=== PATIENT | female | born 1990 | race Caucasian/White ===

== ENCOUNTER 2022-01-17 18:03 | Emergency (ER) | payer SELFPAY ==
[2022-01-17 18:41] VITALS: BP 143/89; PULSE 75; RESP 16; TEMP 36.3; O2SAT 97
--- NOTE | 2022-01-17 18:48 | ED_ITS ---
HPI - Dental/Oral General: Chief complaint: Dental/Oral Stated complaint: ToothAche Time Seen by Provider: 01/17/22 18:48 History of Present Illness: 31-year-old female comes in today with complaints of right lower jaw pain. Patient was started on amoxicillin 875 mg 2 days ago. Patient was also given some ibuprofen with minimal relief of pain. Patient reports worsening pain and discomfort. Patient has minimal swelling to the right lower jaw. Review of Systems General: Reports: 10 or more systems reviewed and unremarkable except in HPI and below ENMT: Reports: dental pain PFS ED PFSH: Medical History (Updated 01/17/22 @ 18:53 by GRACIELA Brush) Dental caries associated with enamel hypomineralization Social History Smoking and tobacco status: never smoked Female Reproductive History: Date of last menstrual period: 12/24/21 Physical Exam Const: COMMON NORMALS: alert HENMT: COMMON NORMALS: normocephalic HEAD & SCALP: normocephalic TEETH & GINGIVA: Yes gingiva abnormal (Redness and swelling to the first premolar, right side, decay) and Yes poor dentition Neck/C-Spine: COMMON NORMALS: full ROM Resp: COMMON NORMALS: normal respiratory effort Cardio: COMMON NORMALS: regular rate RATE: regular rate Extremity: COMMON NORMALS: normal to inspection Neuro: SENSORIUM/ORIENTATION: Yes alert Skin: COMMON NORMALS: no rashes or lesions noted GENERAL SKIN EXAM: no rashes or lesions noted Course Vital Signs: Vital signs: Vital Signs Temperature 97.4 F L 01/17/22 18:41 Pulse Rate 75 01/17/22 18:41 Respiratory Rate 16 01/17/22 18:41 Blood Pressure 143/89 01/17/22 18:41 Pulse Oximetry 97 01/17/22 18:41 MDM - Dental/Oral Medical Decision Making 31-year-old female comes in today with complaints of right lower jaw pain and discomfort. On exam patient has erythema and swelling to the right lower premolar. There is significant decay to this tooth. There is minimal swelling to the face. Posterior pharynx is open without any signs of symmetry or significant swelling. Patient manages secretions well. Differential diagnosis includes but not limited to dental pain, dental abscess, dental caries. Believe patient probably has a dental abscess antibiotics are not treating it effectively. We will place patient on clindamycin 300 mg 4 times a day for the next 7 days. Patient was given some hydrocodone to assist with her pain control. Patient was recommended to continue using Tylenol and ibuprofen for pain control. Patient was strongly recommended to follow-up with dentist for definitive care. Patient reported understanding. Discharge Plan Discharge Patient Disposition: Home Clinical Impression: Dental abscess Condition: Stable Prescriptions: New clindamycin HCl 300 mg capsule 300 mg PO QID 7 Days Qty: 28 0RF hydrocodone-acetaminophen 5-325 mg tablet 1 tab PO Q6H PRN (Reason: pain (scale score 7-10)) Qty: 7 0RF No Action amoxicillin 875 mg tablet 875 mg PO BID Qty: 30 0RF ibuprofen 800 mg tablet 800 mg PO Q6H Qty: 60 0RF Discharge Orders: Discharge ED (Routine); Ordered 01/17/22 Ordered By: Stanley Kirby Discharge Diet: Usual diet Discharge Activity: Increase activity as tolerated Patient Instructions: Dental Abscess (ED) Activity Restrictions/Additional Instructions: Take clindamycin antibiotic 300 mg 4 times a day while awake. Use hydrocodone for severe pain. Use acetaminophen and ibuprofen to control pain. Drink plenty of water. Use ice or heat to the area for further comfort. Follow-up with dentist for definitive care. Coding Level of Care Code ED Platform Attendant for John Graves
[2022-01-17] MEDS: HYDROcodone-acetaminophen 5-325 mg Tablet 1 TAB PO (18:59)
[2022-01-17] MEDS: clindamycin 150 mg Capsule 300 MG PO (19:08)
== END 2022-01-17 19:09 | disposition home or self-care (01) ==
PROVIDERS: Emergency Provider Nurse Practitioner Family
DX: K04.7 Periapical abscess without sinus (principal)
CPT/HCPCS: 99283

== ENCOUNTER 2022-10-21 16:35 | Inpatient (IN) | payer MEDICAID, SELFPAY ==
[2022-10-21 17:03] VITALS: BP 125/76; PULSE 148; RESP 19; TEMP 37.7; O2SAT 100; BMI 40.0
[2022-10-21 18:37] VITALS: BP 126/72; PULSE 126; O2SAT 100
--- NOTE | 2022-10-21 18:38 | ED_ITS ---
HPI - Female Genitourinary General: Chief complaint: Urogenital-Female Stated complaint: SOB, Abd pains, N/V Time Seen by Provider: 10/21/22 18:38 History of Present Illness: Ms. Gerard is a 32-year-old lady presenting to the emergency department for generalized illness. She notes onset of symptoms with cough and congestion approximately 2 weeks ago. She has had persistent shortness of breath though the cough is improved since that time. She has noted elevated heart rate. She is also subsequently developed hematuria and dysuria. Denies flank pain. She notes generalized malaise. Overall course of symptoms has worsened. Intensity is moderate to severe. No other specific changes in health, exacerbating, or alleviating factors identified. Onset (ago): week(s) Severity: moderate Quality of pain: aching Vaginal discharge: none Vaginal bleeding: none Urinary symptoms: Dysuria and Hematuria Exacerbating factors: none Relieving factors: none Associated symptoms: Reports short of breath, nausea and other Review of Systems General: Reports: 10 or more systems reviewed and unremarkable except in HPI and below GI: Reports: nausea PFSH ED PFSH: Medical History Dental caries associated with enamel hypomineralization Social History Smoking and tobacco status: never smoked Physical Exam Const: COMMON NORMALS: alert GENERAL APPEARANCE: cooperative and well developed HENMT: COMMON NORMALS: normocephalic and atraumatic HEAD & SCALP: normocephalic and atraumatic Eye: COMMON NORMALS: conjunctivae normal CONJUNCTIVA: Yes conjunctivae normal SCLERA: sclerae normal Neck/C-Spine: COMMON NORMALS: supple GENERAL: Yes trachea midline Resp: COMMON NORMALS: clear to auscultation bilaterally EFFORT & INSPECTION: Yes able to speak in complete sentences AUSCULTATION: clear to auscultation bilaterally Cardio: COMMON NORMALS: regular rhythm RATE: tachycardic RHYTHM: regular rhythm GI: COMMON NORMALS: Soft to palpation PALPATION: Yes Soft to palpation and No Tenderness to palpation present (GI) : COMMON NORMALS: Yes no CVA tenderness BLADDER/KIDNEY EXAM: Yes no CVA tenderness Back/Pelvis: COMMON NORMALS: no CVA tenderness Extremity: GENERAL: Yes normal exam except as noted and No edema Neuro: COMMON NORMALS: moves all extremities SENSORIUM/ORIENTATION: Yes alert and No Orientation impaired Psych: COMMON NORMALS: mental status grossly normal and Normal thought process present THOUGHT PROCESS: Normal thought process present Course Vital Signs: Vital signs: Vital Signs Temperature 98.1 F 10/27/22 17:45 Pulse Rate 98 10/27/22 17:45 Respiratory Rate 18 10/27/22 17:45 Blood Pressure 132/85 10/27/22 17:45 Pulse Oximetry 100 10/27/22 17:45 Oxygen Delivery Me thod Room Air 10/27/22 16:00 MDM - Female Medical Decision Making 32-year-old lady presenting with shortness of breath and abdominal symptoms. She is tachycardic on exam. EKG demonstrate sinus tachycardia with nonspecific ST segment abnormalities, normal axis and intervals, no STEMI. Labs with leukocytosis, microcytic anemia, thrombocytosis which is likely reactive. Metabolic panel with dehydration and mild hypokalemia. Lactic acid is elevated with improvement after fluid resuscitation. Urinalysis with possible UTI. Chest x-ray with no lobar consolidation or pneumothorax. Given severity of symptoms and overall clinical history/evaluation CT imaging is appropriate. CT demonstrates likely pyelonephritis. Incidental findings discussed. Patient treated with IV fluids needing 30 cc/kg ideal body weight and broad- spectrum antibiotics. She was also given analgesia. Mostly etiology of symptoms is pyelonephritis with sepsis. The results of ED evaluation were discussed with the patient including plan for admission due to requirement for level of care not available if discharged to prevent significant worsening/deterioration. Patient agreeable with plan. Discussed with hospitalist service who was agreeable to admit patient. Medical Records I reviewed the patient's medical records. Lab Data I reviewed the patient's lab results. 10/26/22 04:17 10/26/22 04:17 Radiology Impressions Chest X-Ray 10/21/22 18:44 IMPRESSION: No acute findings. Chest/Abdomen/Pelvis CT 10/21/22 20:28 IMPRESSION: No acute findings. IMPRESSION: 1. Cystic collection of material posterior to the uterus measuring 3.9 cm may reflect a collection of ovarian cysts, consider further characterization with pelvic ultrasound. 2. Mild left kidney perinephric edema with some possible left kidney upper pole heterogeneity, please correlate for possible pyelonephritis. 3. Probable dependent subcutaneous edema in the posterior lumbar region. 4. Fluid in the uterine cavity likely related menstrual status. 5. Hepatic steatosis. Pelvis Ultrasound 10/22/22 03:06 IMPRESSION: 1. Normal uterus and endometrium. 2. Both ovaries are very slightly enlarged with small cysts. No mass or torsion. 3. Small amount of complex fluid in the pelvis is probably blood from a hemorrhagic cyst. Abdomen/Pelvis CT 10/23/22 02:32 IMPRESSION: No acute intra-abdominal or intrapelvic pathology. Chest CTA 10/24/22 18:52 IMPRESSION: 1. Scattered ground-glass opacities in the left lower lobe most prominent at the posteromedial aspect. Nonspecific and can be seen with pneumonia, pneumonitis, and/or pulmonary edema. 2. Fatty infiltration of the liver. Laboratory Results WBC 26.6 10^3/uL (4.0-10.0) H 10/21/22 19:30 RBC 3.74 10^6/uL (4.1-5.3) L 10/21/22 19:30 Hgb 7.6 g/dL (11.5-15.3) L 10/21/22 19:30 Hct 27.3 % (37.0-47.0) L 10/21/22 19:30 MCV 73.0 fl (81-99) L 10/21/22 19:30 MCH 20.3 pg (28.0-34.0) L 10/21/22 19:30 MCHC 27.8 g/dL (30.0-36.0) L 10/21/22 19:30 RDW 17.3 % (12.1-15.1) H 10/21/22 19:30 Plt Count 574 10^3/cmm (130-400) H 10/21/22 19:30 MPV 9.2 fL (7.4-10.4) 10/21/22 19:30 Neut % (Auto) 80.1 % 10/21/22 19:30 Lymph % (Auto) 10.2 % 10/21/22 19:30 [place] % (Auto) 7.4 % 10/21/22 19:30 Eos % (Auto) 0.1 % 10/21/22 19:30 Baso % (Auto) 0.3 % 10/21/22 19:30 Neut # (Auto) 21.24 10^3/uL (1.8-7.7) H 10/21/22 19: Lymph # (Auto) 2.7 10^3/uL (0.8-4.8) 10/21/22 19: [place] # (Auto) 2.0 10^3/uL (0.2-0.9) H 10/21/22: Eos # (Auto) 0.0 10^3/uL (0.0-0.8) 10/21/22 19: Baso # (Auto) 0.1 10^3/uL (0.0-0.1) 10/21/22: Nucleated RBC % (auto) 0.6 % 10/21/22: Nucleated RBCs # 0.2 /100WBC 10/21/22: D-Dimer 0.64 ug/mIFEU (0-0.59) H 10/21/22 19:30 Sodium 136 mmol/L (136-145) 10/21/22 19: Potassium 3.2 mmol/L (3.5-5.1) L 10/21/22 19: Chloride 100 mmol/L (98-107) 10/21/22 19: Carbon Dioxide 21 mmol/L (22-29) L 10/21/22: Anion Gap 18.2 (5-19) 10/21/22: BUN 11 mg/dL (6-20) 10/21/22: Creatinine 0.7 mg/dL (0.5-0.9) 10/21/22: GFR Calculation 98.3 mL/min (90-130) 10/21/22 19: Glucose 97 mg/dL (65-115) 10/21/22: Calculated Osmolality 281 mOsm/kg (285-295) L 10/21/22 19:30 Lactic Acid 3.6 mmol/L (0.5-2.2) H 10/21/22 19: Lactic Acid (Sepsis) 2.1 mmol/L (0.5-2.2) 10/21/22 21:54 Calcium 8.9 mg/dL (8.5-10.5) 10/21/22: Iron 12 ug/dL (37-145) L 10/21/22 19: TIBC 363 mcg/dl 10/21/22 19: % Saturation 3.3 % (20-50) L 10/21/22 19: Unsat Iron Binding 351 ug/dL (112-347) H 10/21/22 19:30 Ferritin 35 ng/mL (15-150) 10/21/22 19: Total Bilirubin 0.7 mg/dL (0.15-1.2) 10/21/22 19: AST 20 U/L (0-32) 10/21/22 19: ALT 22 U/L (0-33) 10/21/22: Alkaline Phosphatase 83 U/L (35-105) 10/21/22: C-Reactive Protein 104.0 mg/L (0.0-4.9) H 10/21/22 19: Total Protein 7.9 g/dL (6.6-8.7) 10/21/22: Albumin 4.4 g/dL (3.5-5.2) 10/21/22 19: Globulin 3.5 g/dL (1.3-4.6) 10/21/22 19: Lipase 27 U/L (13-60) 10/21/22 19: Procalcitonin 0.12 ng/mL (0-0.5) 10/21/22 19: TSH 2.99 uIU/mL (0.27-4.20) 10/21/22 19: HCG, Qual Negative (Negative) 10/21/22 19: Urine Color Yellow (Yellow) 10/21/22 19:55 Urine Appearance Clear (CLEAR) 10/21/22 19:55 Urine pH 6 (5-7) 10/21/22 19: Ur Specific [place] 1.020 (1.005-1.030) 10/21/22 19: Urine Protein Neg (Negative) 10/21/22 19:55 Urine Glucose (UA) Norm (Normal) 10/21/22 19:55 Urine Ketones Negative (Negative) 10/21/22 19:55 Urine Blood 3+ (Negative) H 10/21/22 19:55 Urine Nitrate Negative (Negative) 10/21/22 19:55 Urine Bilirubin Neg (Negative) 10/21/22 19:55 Urine Urobilinogen Norm mg/dL (Negative) 10/21/22 19:55 Ur Leukocyte Esterase Negative (Negative) 10/21/22 19:55 Urine RBC 5-10 /hpf (0-2) H 10/21/22 19:55 Urine WBC 5-10 /hpf (0-5) H 10/21/22 19:55 Ur Squamous Epith Cells 0-4 /hpf (0-5) H 10/21/22 19:55 Amorphous Sediment Not Reportable 10/21/22 19:55 Urine Bacteria 2+ /hpf (NONE) H 10/21/22 19:55 Critical Care Time Critical Care Time: Critical Care Time: Yes Total Critical Care Time: 35 Attestation: Due to a high probability of clinically significant, possibly life threatening deterioration, the patient required my highest level of attention and preparedness to intervene emergently and I personally spent this critical care time directly and personally managing the patient. This critical care time included obtaining a history; examining the patient; pulse oximetry; ordering and review of laboratory and imaging studies; arranging urgent treatment with development of a management plan; evaluation of patient's response to treatment; frequent reassessment; and, discussions with other providers as applicable. It was exclusive of separately billable procedures. Primary system involved is infectious disease Discharge Plan Discharge Patient Disposition: Admitted As Inpatient Admit Provider: Julia Jordan Clinical Impression: Pyelonephritis, Sepsis Condition: Stable Discharge Diet: Cardiac Discharge Activity: Increase activity as tolerated Coding Level of Care Code ED C 13 Catapult Operator for John Graves
--- NOTE | 2022-10-21 18:44 | XRR_ITS ---
PROCEDURE INFORMATION: Exam: XR Chest Exam date and time: 10/21/2022 6:56 PM Age: 32 years old Clinical indication: Cough TECHNIQUE: Imaging protocol: Radiologic exam of the chest. Views: 1 view. COMPARISON: CR XR chest 1V [id number] 11/11/2018 6:47 AM FINDINGS: Lungs: Unremarkable. No consolidation. Pleural spaces: Unremarkable. No pleural effusion. No pneumothorax. Heart/Mediastinum: Unremarkable. No cardiomegaly. Bones/joints: Unremarkable. XR/XR chest 1V portable [id number] IMPRESSION: No acute findings.
--- NOTE | 2022-10-21 19:40 | ECG_ITS ---
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 Measurements Intervals [place] Rate: 134 P: 33 NH: 136 QRS: 15 QRSD: 77 T: -4 QT: 331 QTc: 495 Interpretive Statements SINUS TACHYCARDIA MINIMAL VOLTAGE CRITERIA FOR LVH, CONSIDER NORMAL VARIANT [MEETS CRITERIA IN ONE OF: R(aVL), S(V1), R(V5), R(V5/V6)+S(V1)] POSSIBLE ANTERIOR MYOCARDIAL INFARCTION , PROBABLY OLD [30 ms Q WAVE IN V3/V4, OR R < 0.2 mV IN V4] ABNORMAL RHYTHM ECG Compared to ECG 11/12/2018 11:01:11 Myocardial infarct finding now present Electronically Signed On 10-21-2022 21:07:28 CDT by Lamont Garcia M.D. [id number]
[2022-10-21 19:55] LABS: Basophils # 0.1 10^3/uL (0.0-0.1); Basophils % 0.3 %; Eosinophils % 0.1 %; Hematocrit 27.3 % (37.0-47.0); Hemoglobin 7.6 g/dL (11.5-15.3); Lymphocytes # 2.7 10^3/uL (0.8-4.8); Lymphocytes % 10.2 %; Mean Corpuscular HGB Conc 27.8 g/dL (30.0-36.0); Mean Corpuscular Hemoglobin 20.3 pg (28.0-34.0); Mean Platelet Volume 9.2 fL (7.4-10.4); Monocytes % 7.4 %; Neutrophils # 21.24 10^3/uL (1.8-7.7); Neutrophils % 80.1 %; Nucleated Red Blood Cells # 0.2 /100WBC; Nucleated Red Blood Cells % 0.6 %; Platelet Count 574 10^3/cmm (130-400); Red Blood Count 3.74 10^6/uL (4.1-5.3); Red Cell Distribution Width 17.3 % (12.1-15.1); White Blood Count 26.6 10^3/uL (4.0-10.0)
[2022-10-21 20:27] LABS: D Dimer 0.64 ug/mIFEU (0-0.59)
[2022-10-21] MEDS: cefepime 2,000 MG in sodium chloride 0.9% (plus) 50 ML 100 MG IV (20:28)
--- NOTE | 2022-10-21 20:28 | CTR_ITS ---
PROCEDURE INFORMATION: Exam: CT Chest With Contrast; Diagnostic Exam date and time: 10/21/2022 11:31 PM Age: 32 years old Clinical indication: Pain and abnormal findings; Abnormal lab test; Elevated wbc; Other: N/a; Abdominal pain; Shortness of breath; Patient HX: C/O SOB with diffuse abd pain. Persistent tachycardia. Wbc of 26k. Hematuria. ; Additional info: SOB, tachycardia, abd pain, sirs TECHNIQUE: Imaging protocol: Diagnostic computed tomography of the chest with contrast. Radiation optimization: All CT scans at this facility use at least one of these dose optimization techniques: automated exposure control; mA and/or kV adjustment per patient size (includes targeted exams where dose is matched to clinical indication); or iterative reconstruction. Contrast material: OMNI 350; Contrast volume: 100 ml; Contrast route: INTRAVENOUS (IV); REPORTING DATA: Count of CT and Cardiac NM exams in prior 12 months: This patient has received 0 known CTs and 0 known cardiac nuclear medicine studies in the 12 months prior to the current study. COMPARISON: CR (CHEST, ) 10/21/2022 6:56 PM RADIATION DOSE METRICS: Total DLP (mGy-cm): 1296.23 FINDINGS: Lungs: Unremarkable. No consolidation. No masses. Pleural spaces: Unremarkable. No pneumothorax. No pleural effusion. Heart: Unremarkable. No cardiomegaly. No pericardial effusion. Lymph nodes: Unremarkable. No enlarged lymph nodes. Vasculature: Unremarkable. No aortic aneurysm. Bones/joints: Unremarkable. No acute fracture. Soft tissues: Unremarkable. PROCEDURE INFORMATION: Exam: CT Abdomen And Pelvis With Contrast Exam date and time: 10/21/2022 11:31 PM Age: 32 years old Clinical indication: Pain and abnormal findings; Abnormal lab test; Elevated wbc; Other: N/a; Abdominal pain; Shortness of breath; Patient HX: C/O SOB with diffuse abd pain. Persistent tachycardia. Wbc of 26k. Hematuria. ; Additional info: SOB, tachycardia, abd pain, sirs TECHNIQUE: Imaging protocol: Computed tomography of the abdomen and pelvis with contrast. Radiation optimization: All CT scans at this facility use at least one of these dose optimization techniques: automated exposure control; mA and/or kV adjustment per patient size (includes targeted exams where dose is matched to clinical indication); or iterative reconstruction. Contrast material: OMNI 350; Contrast volume: 100 ml; Contrast route: INTRAVENOUS (IV); REPORTING DATA: Count of CT and Cardiac NM exams in prior 12 months: This patient has received 0 known CTs and 0 known cardiac nuclear medicine studies in the 12 months prior to the current study. COMPARISON: CT angio chest w abd pel w con 11/11/2018 8:54 AM RADIATION DOSE METRICS: Total DLP (mGy-cm): 1296.23 FINDINGS: Liver: Hepatic steatosis. Gallbladder and bile ducts: Normal. No calcified stones. No ductal dilation. Pancreas: Normal. No ductal dilation. Spleen: Normal. No splenomegaly. Adrenal glands: Normal. No mass. Kidneys and ureters: Mild left kidney perinephric edema with some possible left kidney upper pole heterogeneity, please correlate for possible pyelonephritis. Stomach and bowel: Unremarkable. No obstruction. No mucosal thickening. Appendix: No evidence of appendicitis. Intraperitoneal space: Unremarkable. No free air. No significant fluid collection. Vasculature: Unremarkable. No abdominal aortic aneurysm. Lymph nodes: Unremarkable. No enlarged lymph nodes. Urinary bladder: Unremarkable as visualized. Reproductive: Cystic collection of material posterior to the uterus measuring 3.9 cm may reflect a collection of ovarian cysts, consider further characterization with pelvic ultrasound. Fluid in the uterine cavity likely related menstrual status. Bones/joints: Unremarkable. No acute fracture. Soft tissues: Probable dependent subcutaneous edema in the posterior lumbar region. CT/CT chest abdpel w/*[id number] IMPRESSION: No acute findings. IMPRESSION: 1. Cystic collection of material posterior to the uterus measuring 3.9 cm may reflect a collection of ovarian cysts, consider further characterization with pelvic ultrasound. 2. Mild left kidney perinephric edema with some possible left kidney upper pole heterogeneity, please correlate for possible pyelonephritis. 3. Probable dependent subcutaneous edema in the posterior lumbar region. 4. Fluid in the uterine cavity likely related menstrual status. 5. Hepatic steatosis.
[2022-10-21] MEDS: lactated ringers 1,000 ML 999 ML IV ×2 (20:29→23:14)
[2022-10-21 20:33] LABS: Lactic Sepsis W/Reflex 3.6 mmol/L (0.5-2.2)
[2022-10-21 20:34] LABS: Alanine Aminotransferase 22 U/L (0-33); Albumin Level 4.4 g/dL (3.5-5.2); Alkaline Phosphatase 83 U/L (35-105); Anion Gap 18.2 (5-19); Aspartate Amino Transferase 20 U/L (0-32); Blood Urea Nitrogen 11 mg/dL (6-20); Calcium 8.9 mg/dL (8.5-10.5); Carbon Dioxide 21 mmol/L (22-29); Chloride 100 mmol/L (98-107); Globulin 3.5 g/dL (1.3-4.6); Glomerular Filtration Rate 98.3 mL/min (90-130); Glucose 97 mg/dL (65-115); Lipase 27 U/L (13-60); Osmolality Calculated 281 mOsm/kg (285-295); Potassium 3.2 mmol/L (3.5-5.1); Sodium 136 mmol/L (136-145); Total Bilirubin 0.7 mg/dL (0.15-1.2); Total Protein 7.9 g/dL (6.6-8.7)
[2022-10-21 20:35] LABS: Add Urine Culture? Yes; Add Urine Microscopic? YES; Bacteria Urine 2+ /hpf; Bilirubin Urine Neg (Negative); Blood Urine 3+ (Negative); Glucose Urine UA Norm (Normal); Ketones Urine Negative (Negative); Leukocyte Esterase Urine Negative (Negative); Nitrate Urine Negative (Negative); Protein Urine Neg (Negative); Squamous Epithelial Cell Urine 0-4 /hpf (0-5); Urine Appearance Clear (CLEAR); Urine Color Yellow (Yellow); Urobilinogen Urine Norm (Negative); pH Urine 6 (5-7)
[2022-10-21 20:39] LABS: Procalcitonin 0.12 ng/mL (0-0.5)
[2022-10-21 20:40] LABS: HCG Qualitative Urine. Negative (Negative)
[2022-10-21 20:44] VITALS: RESP 16; O2SAT 100
[2022-10-21] MEDS: morphine 4 mg/mL SDV 1 mL IVP (20:44)
[2022-10-21 20:59] VITALS: BP 103/54; PULSE 126; RESP 16; O2SAT 100
[2022-10-21 21:28] LABS: Reflex Lactate Order REFLEX LACTIC ORDERD
[2022-10-21 21:46] VITALS: BP 126/58; PULSE 139; RESP 16; O2SAT 100
[2022-10-21 22:22] LABS: Lactic Acid level (Lactate) 2.1 mmol/L (0.5-2.2)
[2022-10-21] MEDS: iohexol 350 mg/mL 500 mL Btl (per mL) IV (23:39)
[2022-10-22] VITALS (16 sets, daily range): BP systolic 80–132; BP diastolic 44–66; PULSE 85–145; RESP 16–19; TEMP 36.8–38.6; O2SAT 95–100; BMI 48.0
[2022-10-22] MEDS: lactated ringers 1,000 ML 75 ML (02:07)
--- NOTE | 2022-10-22 02:31 | PC.NURSE ---
Pt arrived to room 269 w/mother and father at bedside. Explained hospitalist will be in and put in orders, NPO at this time. Pt denies pain currently.
--- NOTE | 2022-10-22 02:50 | ECG_ITS ---
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 Measurements Intervals [place] Rate: 120 P: 47 NE: 155 QRS: 40 QRSD: 81 T: 13 QT: 417 QTc: 589 Interpretive Statements SINUS TACHYCARDIA LOW QRS VOLTAGE IN PRECORDIAL LEADS [QRS DEFLECTION < 1.0 mV IN CHEST LEADS] NONSPECIFIC T-WAVE ABNORMALITY Compared to ECG 10/22/2022 02:57:01 No significant changes Electronically Signed On 10-22-2022 7:37:22 CDT by Lamont Garcia M.D. [id number]
--- NOTE | 2022-10-22 03:01 | P.HP_ITS ---
Providers/Chief Complaint Admitting Physician: Julia Jordan MD Chief Complaint: SOB, Abd pains, N/V History of Present Illness Araceli Gerard is a 32 year old female with nonsignificant past medical history presented to the ER with generalized weakness along with symptoms of cough and congestion that started 2 weeks ago. She is also been having shortness of breath along with it. She states that the cough might be a little bit better however the shortness of breath has not improved. Eventually subsequently she developed some burning upon urination and also noticed blood in her urine. She says she generally feels weak. She has been feeling worse day by day ever since this whole thing started. Denies any chest pain, abdominal pain, nausea, vomiting, diarrhea at this time. Has never smoked, denies alcohol use. Says she has had a UTI before and a kidney infection but that was years ago. She is not on any home medications and otherwise healthy. Arrival to ER blood pressure 126/72, respirate 19, tachycardic at 126, tempe rature 99.8, saturating 100% on room air. Chest x-ray did not show any acute findings. WBC 26.6, hemoglobin 7.6, RDW 17.3, platelet 574, D-dimer 0.64, potassium 3.2, bicarb 21, creatinine 0.7, lipase negative, CRP 104, lactic acid 3.6, UA positive for 3+ blood, 5-10 RBC, 5-10 WBC, 2+ bacteria. test negative, procalcitonin 0.12. EKG did show sinus tachycardia. Medications/Allergies Home Medications Medication Instructions Recorded Confirmed Last Taken Type No Known Home Medications 10/21/22 10/21/22 Unknown History Allergies Allergy/AdvReac Type Severity Reaction Status Date / Time No Known Allergies Allergy Verified 01/17/22 18:44 PFSH Acute PFSH: Medical History Dental caries associated with enamel hypomineralization Social History Smoking and tobacco status: never smoked Vitals/I&O/Wt Last Vital Signs Temp 99.9 F H 10/22/22 02:07 Pulse 132 H 10/22/22 02:07 Resp 18 10/22/22 02:07 BP 114/58 10/22/22 02:07 Pulse Ox 100 10/22/22 02:07 O2 Del Method Room Air 10/22/22 02:08 10/21/22 10/21/22 10/22/22 14:59 22:59 06:59 Intake Total 2049 Balance 2049 Weight last 48 hrs Weight 100.783 kg Weight 83.915 kg Physical Exam Narrative: General: Alert oriented x3, patient seen laying in bed, tachycardic no acute respiratory distress. Appears dehydrated HEENT: Normocephalic, atraumatic, EOMI, breathing room air Cardio: Tachycardic, normal S1-S2, Respiratory: Mainly clear to auscultation bilaterally no wheezes or rhonchi at this time. GI: Abdomen soft, nontender,bowel sounds + Behavior: Appropriate and cooperative Extremities: No edema bilateral lower extremity Sepsis: Is patient septic: Yes Focused sepsis exam performed: Yes Focused sepsis exam: Tachycardic, elevated lactic acid, elevated temperature, wbc [id number] Date exam was performed: 10/22/22 Data 10/21/22 19:30 10/21/22 19:30 Micro: Microbiology 10/21/22 19:30 Blood Culture - Preliminary Blood SPECIMEN COLLECTED 10/21/22 19:30 Blood Culture - Preliminary Blood SPECIMEN COLLECTED A&P Assessment and plan (1) Pyelonephritis: (2) Sepsis: (3) Thrombocytosis: (4) Cough: (5) Leukocytosis: (6) Anemia: (7) Hypokalemia: Plan #Sepsis secondary to acute pyelonephritis #Low-grade temperature #Cough most likely 2/2 upper respiratory viral illness #Hematuria, dysuria #Thrombocytosis #Leukocytosis #Anemia #Hypokalemia ? CT chest abd pelvis showed: 1. Cystic collection of material posterior to the uterus measuring 3.9 cm may reflect a collection of ovarian cysts, consider further characterization with pelvic ultrasound. 2. Mild left kidney perinephric edema with some possible left kidney upper pole heterogeneity, please correlate for possible pyelonephritis. 3. Probable dependent subcutaneous edema in the posterior lumbar region. 4. Fluid in the uterine cavity likely related menstrual status. 5. Hepatic steatosis. ? Check iron, TIBC, ferritin. P.m. labs do indicate possible iron deficiency anemia ? Check FOBT ? Patient may require IV iron ? Thrombocytosis most likely secondary to infection ? Check blood cultures, urine culture ? Respiratory viral panel, COVID PCR ? Vitals every 4 hours ? Trend CBC every 12 hours ? Check CMP, magnesium in a.m. ? Replete potassium and recheck in a.m. - Check pelvic ultrasound - Continue on vanc + cefepime - NS bolus x2, then place on NS 125 cc/hr Full code DVT prophylaxis: SCDs, pharmacological contraindicated at this time Attestations Medical Necessity Statement*: > 2 midnight stay for management of pyelonephritis. Other Coding Information Focused coding review requested Diagnoses Pyelonephritis N12 Sepsis A41.9 Thrombocytosis D75.839 Cough R05.9 Leukocytosis D72.829 Anemia D64.9 Hypokalemia E87.6
--- NOTE | 2022-10-22 03:06 | US_ITS ---
WS: [id number] US pelvic complete* 01430 HISTORY: Cystic collection of material posterior to the uterus COMPARISON: CT 10/21/2022 Uterus: 8.6 cm x 4.4 cm x 4.5 cm. Normal size anteverted uterus. No fibroid or mass. Endometrium: 0.7 cm. Normal by transabdominal imaging. Right ovary: 3.8 cm x 2.9 cm x 3.8 cm. Ovaries top normal size. There are multiple small follicles sc attered throughout the ovary which is close to the uterus and slightly posterior in the cul-de-sac. Left ovary: 3.9 cm x 2.6 cm x 4.6 cm. Slightly enlarged. Small follicles. Normal vascularity. Small amount of complex free fluid in the pelvis. US/US pelvic complete* [id number] IMPRESSION: 1. Normal uterus and endometrium. 2. Both ovaries are very slightly enlarged with small cysts. No mass or torsio n. 3. Small amount of complex fluid in the pelvis is probably blood from a hemorr hagic cyst.
[2022-10-22] MEDS: sodium chloride 0.9% 1,000 ML 999 ML IV ×3 (03:11→23:54)
[2022-10-22] MEDS: acetaminophen 325 mg Tablet 650 MG PO ×2 (03:16→10:06)
[2022-10-22] MEDS: potassium chloride ER 20 mEq Tablet 40 MEQ PO (03:16)
[2022-10-22 04:35] LABS: Ferritin 35 ng/mL (15-150); Iron 12 ug/dL (37-145); Percent Saturation 3.3 % (20-50); Thyroid Stimulating Hormone 2.99 uIU/mL (0.27-4.20); Total Iron Binding Capacity 363 mcg/dl; Unsaturated Iron Binding 351 ug/dL (112-347)
[2022-10-22] MEDS: sodium chloride 0.9% 1,000 ML 125 ML IV ×2 (05:26→17:35)
[2022-10-22] MEDS: iron sucrose 200 MG in sodium chloride 0.9% (100 ml) 100 ML 220 MG IV (05:27)
[2022-10-22 05:43] LABS: Adenovirus Not Detected (NOT DETECT); Chlamydia Pneumoniae Not Detected (NOT DETECT); Coronavirus 229E,HKU1,NL63,OC4 Not Detected (NOT DETECT); Human Metapneumovirus Not Detected (NOT DETECT); Human Rhinovirus/Enterovirus Not Detected (NOT DETECT); Influenza A Not Detected (NOT DETECT); Influenza A H1 Not Detected (NOT DETECT); Influenza A H1-2009 Not Detected (NOT DETECT); Influenza A H3 Not Detected (NOT DETECT); Influenza B Not Detected (NOT DETECT); Mycoplasma Pneumoniae Not Detected (NOT DETECT); Parainfluenza Virus Type 1 Not Detected (NOT DETECT); Parainfluenza Virus Type 2 Not Detected (NOT DETECT); Parainfluenza Virus Type 3 Not Detected (NOT DETECT); Parainfluenza Virus Type 4 Not Detected (NOT DETECT); Respiratory Syncytial Virus A Not Detected (NOT DETECT); Respiratory Syncytial Virus B Not Detected (NOT DETECT); SARS-COV-2 Not Detected (NOT DETECT)
[2022-10-22] MEDS: vancomycin 1,250 MG/250 ML PIGGYBACK 250 MG IV ×2 (06:13→22:58)
[2022-10-22] MEDS: cefepime 1,000 MG in sodium chloride 0.9% (plus) 50 ML 100 MG IV ×2 (08:27→19:58)
--- NOTE | 2022-10-22 13:54 | P.PN_ITS ---
Subjective Subjective: She is having some abdominal and back pain. Vitals/I&O/Wt Last Vital Signs Temp 98.2 F 10/22/22 12:00 Pulse 117 H 10/22/22 12:00 Resp 18 10/22/22 12:00 BP 111/63 10/22/22 12:00 Pulse Ox 96 10/22/22 12:00 O2 Del Method Room Air 10/22/22 12:00 10/21/22 10/22/22 10/22/22 22:59 06:59 14:59 Intake Total 4172.5 / 4172.5 660 / 660 Balance 4172.5 / 4172.5 660 / 660 Weight last 48 hrs Weight 100.783 kg Weight 83.915 kg Physical Exam Narrative: Accompanied by her mother. Const: COMMON NORMALS: patient oriented x3 and alert GENERAL APPEARANCE: cooperative and ill appearing NUTRITIONAL APPEARANCE: obese ORIENTAT ION/CONSCIOUSNESS: Yes awake HENMT: COMMON NORMALS: oropharynx normal Neck/C-Spine: COMMON NORMALS: no JVD Resp: COMMON NORMALS: normal respiratory effort and clear to auscultation bilaterally AUSCULTATION: clear to auscultation bilaterally Cardio: COMMON NORMALS: no JVD, regular rhythm, S1 normal heart sound present, S2 normal heart sound present and No murmurs present (Cardio) RHYTHM: regular rhythm HEART SOUNDS: S1 normal heart sound present and S2 normal heart sound present GI: COMMON NORMALS: Soft to palpation PALPATION: Yes Soft to palpation and Yes Tenderness to palpation present (GI) (Mild to moderate tenderness on palpation) Extremity: COMMON NORMALS: no joint enlargement and no pedal edema Neuro: COMMON NORMALS: patient oriented x3 and moves all extremities SENSORIUM/ORIENTATION: Yes alert Skin: COMMON NORMALS: no rashes or lesions noted GENERAL SKIN EXAM: no rashes or lesions noted Data 10/21/22 19:30 10/21/22 19:30 Micro: Microbiology 10/21/22 19:30 Blood Culture - Preliminary Blood SPECIMEN COLLECTED 10/21/22 19:30 Blood Culture - Preliminary Blood SPECIMEN COLLECTED A&P Assessment and plan (1) Pyelonephritis: Complicated UTI with pyelonephritis. Continue cefepime, vancomycin. Follow-up urine culture. Pain control, nausea control. (2) Pelvic fluid collection: Small amount of complex fluid in the pelvis suspected from ruptured hemorrhagic cyst discussed with her and her mother. Likely contributing to her abdominal pain and other symptoms. Pain and nausea control. Ultrasound results appreciated, normal endometrium and uterus, both ovaries slightly enlarged with small cyst. No mass or torsion. (3) Anemia: TSH are normal. Microcytic. Iron studies appreciated, iron 12, saturation 3.3, iron deficiency anemia. Ferritin 35. As she is still actively in sepsis hold off iron supplementation for now, resume once sepsis under control. (4) Sepsis: Continue to treat online condition as above, noted persistent tachycardia 117. She is afebrile. Leukocytosis 26.6 noted last night, recheck CBC is ordered. Follow-up blood cultures, urine cultures. (5) Thrombocytosis: May be acute phase reactant secondary to sepsis. Follow-up CBC is ordered. (6) Cough: (7) Leukocytosis: (8) Hypokalemia: Received replacement. Recheck chemistry is ordered. Add magnesium. Plan #Sepsis secondary to acute pyelonephritis #Low-grade temperature #Cough most likely 2/2 upper respiratory viral illness #Hematuria, dysuria #Thrombocytosis #Leukocytosis #Anemia #Hypokalemia Hepatic steatosis. Abnormal D-dimer: Mild abnormality D-dimer 0.64 possibly related to sepsis. We will follow-up study. Contrast CT including chest without suggestion of PE. Assess venous duplex ultrasound. Attestations Medical Necessity Statement*: Continue admission for management of complicated UTI, pyelonephritis. Diagnoses Pyelonephritis N12 Pelvic fluid collection R18.8 Anemia D64.9 Sepsis A41.9 Thrombocytosis D75.839 Cough R05.9 Leukocytosis D72.829 Hypokalemia E87.6
--- NOTE | 2022-10-22 14:06 | USCV_ITS ---
Moustapha Araceli Age: 32 Gender: F : 1990 Exam Date: 10/22/2022 14:37 Ordering Phys: Alok Siddiqi MD Technologist: Jalil Agosto [place] [facility] [place] PROCEDURES: The venous duplex Doppler examination of both lower extremities was performed in the standard fashion. The following venous structures were evaluated: common femoral vein, profunda vein, proximal portion of the greater saphenous vein, superficial femoral vein, and the popliteal vein. In addition, the posterior tibial and peroneal trunk were evaluated. FINDINGS: Normal 2-D Doppler and augmentation and compressibility throughout the lower extremity venous structures. Additional imaging through the proximal calf veins also reveals no thrombus. Limited evaluation of the greater saphenous vein is patent with no thrombus. CONCLUSIONS No evidence of right lower extremity DVT. No evidence of left lower extremity DVT. Alber Holliday MD (Electronically Signed) Final Date: 22 October 2022 16:25 S
[2022-10-22] MEDS: ondansetron 2 mg/ML SDV 2 mL 4 MG IVP (14:20)
[2022-10-23] VITALS (22 sets, daily range): BP systolic 94–138; BP diastolic 51–89; PULSE 107–133; RESP 12–24; TEMP 36.7–38.3; O2SAT 94–98
--- NOTE | 2022-10-23 00:57 | ECG_ITS ---
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 Measurements Intervals [place] Rate: 149 P: 52 GA: 142 QRS: 28 QRSD: 76 T: 24 QT: 310 QTc: 489 Interpretive Statements SINUS TACHYCARDIA NONSPECIFIC ST & T-WAVE ABNORMALITY Compared to ECG 10/22/2022 06:43:35 No significant changes Electronically Signed On 10-23-2022 13:51:18 CDT by Lamont Garcia M.D. [id number]
[2022-10-23] MEDS: sodium chloride 0.9% 1,000 ML 999 ML IV (01:13)
--- NOTE | 2022-10-23 01:17 | PC.NURSE ---
Pt and her mother informed on new orders regarding hypotension and tachycardia. Explained iv NS bolus, metoprolol for tachycardia and direction to move to ICU 1 if pt becomes hypotensive again. Mother and daughter stated understanding.
[2022-10-23] MEDS: metoprolol tartrate 25 mg Tablet 12.5 MG PO (01:20)
[2022-10-23 01:35] LABS: Basophils # 0.1 10^3/uL (0.0-0.1); Basophils % 0.3 %; Eosinophils # 0.1 10^3/uL (0.0-0.8); Eosinophils % 0.5 %; Hematocrit 20.9 % (37.0-47.0); Lymphocytes # 2.3 10^3/uL (0.8-4.8); Lymphocytes % 14.4 %; Mean Corpuscular HGB Conc 28.2 g/dL (30.0-36.0); Mean Corpuscular Hemoglobin 20.8 pg (28.0-34.0); Mean Corpuscular Volume 73.9 fl (81-99); Mean Platelet Volume 9.3 fL (7.4-10.4); Monocytes # 1.5 10^3/uL (0.2-0.9); Monocytes % 9.6 %; Neutrophils # 11.58 10^3/uL (1.8-7.7); Neutrophils % 73.5 %; Nucleated Red Blood Cells # 0.1 /100WBC; Nucleated Red Blood Cells % 0.8 %; Platelet Count 403 10^3/cmm (130-400); Red Blood Count 2.83 10^6/uL (4.1-5.3); Red Cell Distribution Width 17.4 % (12.1-15.1); White Blood Count 15.8 10^3/uL (4.0-10.0)
[2022-10-23 01:43] LABS: D Dimer 0.78 ug/mIFEU (0-0.59); Hemoglobin 5.9 g/dL (11.5-15.3)
[2022-10-23 01:45] LABS: Anion Gap 15.3 (5-19); Blood Urea Nitrogen 5 mg/dL (6-20); Calcium 7.5 mg/dL (8.5-10.5); Carbon Dioxide 19 mmol/L (22-29); Chloride 107 mmol/L (98-107); Glomerular Filtration Rate 117.4 mL/min (90-130); Glucose 121 mg/dL (65-115); Osmolality Calculated 285 mOsm/kg (285-295); Potassium 3.3 mmol/L (3.5-5.1); Sodium 138 mmol/L (136-145)
[2022-10-23] MEDS: sodium chloride 0.9% 1,000 ML 125 ML IV ×2 (02:17→11:02)
--- NOTE | 2022-10-23 02:32 | CTR_ITS ---
PROCEDURE INFORMATION: Exam: CT Abdomen And Pelvis Without Contrast Exam date and time: 10/23/2022 5:37 AM Age: 32 years old Clinical indication: Other: Anemia; Abdominal pain; Generalized; Patient HX: C/O persistent abd pain with hemoglobin of 5.9; Additional info: R/O bleed, abd pain, hb 5.9 TECHNIQUE: Imaging protocol: Computed tomography of the abdomen and pelvis without contrast. Radiation optimization: All CT scans at this facility use at least one of these dose optimization techniques: automated exposure control; mA and/or kV adjustment per patient size (includes targeted exams where dose is matched to clinical indication); or iterative reconstruction. REPORTING DATA: Count of CT and Cardiac NM exams in prior 12 months: This patient has received [address] and 0 known cardiac nuclear medicine studies in the 12 months prior to the current study. COMPARISON: CT chest abdpel w/*[id number] 10/21/2022 11:31 PM RADIATION DOSE METRICS: Total DLP (mGy-cm): 998.3 FINDINGS: Liver: The liver is diffusely decreased in density, compatible with hepatic steatosis. No discrete mass lesion identified. Gallbladder and bile ducts: Normal. No calcified stones. No ductal dilation. Pancreas: Normal. No ductal dilation. Spleen: Normal. No splenomegaly. Adrenal glands: Normal. No mass. Kidneys and ureters: Punctate bilateral nonobstructing stones seen. No hydronephrosis. Stomach and bowel: Unremarkable. No obstruction. No mucosal thickening. Appendix: No evidence of appendicitis. Intraperitoneal space: Unremarkable. No free air. No significant fluid collection. Vasculature: Unremarkable. No abdominal aortic aneurysm. Lymph nodes: Unremarkable. No enlarged lymph nodes. Urinary bladder: Unremarkable as visualized. Reproductive: Unremarkable as visualized. Bones/joints: Bilateral hip dysplasia noted. Soft tissues: Unremarkable. CT/CT abdomen pelvis wo con [id number] IMPRESSION: No acute intra-abdominal or intrapelvic pathology.
--- NOTE | 2022-10-23 02:48 | PC.NURSE ---
Per physician Dr. Jordan, pt to transfer to ICU for closer monitor d/t decreased hemoglobin and tachycardia. Informed pt and her mother. Pt's mother ok with the transfer, pt is not ok with the transfer and would like to talk to the physician prior to moving floors. Dr. Jordan notified of pt request to speak w/her prior to transfer to ICU. Physician to talk to patient when done in ICU. Pt remains agitated regarding situation, since it is unclear where her bleed is coming from. One on one care and redirection provided to pt and mother.
[2022-10-23] MEDS: acetaminophen 325 mg Tablet 650 MG PO (05:22)
[2022-10-23 10:51] LABS: LAB Peripheral Smear Sent for Review
[2022-10-23] MEDS: pantoprazole 40 mg SDV IVP ×2 (11:01→21:18)
[2022-10-23] MEDS: cefepime 1,000 MG in sodium chloride 0.9% (plus) 50 ML 100 MG IV ×2 (11:01→19:47)
--- NOTE | 2022-10-23 11:11 | PC.CHAP ---
Pastoral Care Encounter/Spiritual Assessment Type of Contact [] Declined lamp wirer visit [] Patient/Family/Request visit [] Outpatient visit [] Follow-up visit [] Physician referral [] Code/Alert [x] Routine visit [] Staff referral [] Actively dying [] Patient sleeping [] Family support [] [] Out of room [] Palliative care [] [] Receiving care in room [] Pre-surgical visit [] Trauma [] Long length of stay [] ICU visit [] Other: Relational/Emotional Strength [] Patient feels connected with others/family/visitors/staff [] Distress [] Loneliness/isolation [] Abandonment Spirituality of Patient [] Person of Sue [] Attends Temple of their Sue [] Believes in Prayer [] Reads Bible or Congregational materials [x] There are Spiritual issues to be addressed [employer] Interventions [] Prayer [] Active listening [] Non-anxious presence [] Spiritual/emotional support [] Crisis/trauma care [] Spiritual counseling [] Bereavement support [] Provided bereavement packet [] Provided Bible/devotional materials [] Provided toy/stuffed animal, coloring book to patient or family member [] Provided Communion [] Anointing/[place] [] Salvation [x] Completed spiritual assessment [] Other: Impact on Illness or Injury [] Angry [] Fearful [] Anxious [] Often cries [] Exhaustion [] Unable to work [] Unable to attend gnosticism [] Unable to walk/stand [] Unable to read [] Unable to drive [] Unable to eat/drink [] Unable to sleep [] Unable to be with family [] Patient intubated [] Other: Summary patient nrefused prayer Time spent with patient 5 min
[2022-10-23 12:02] LABS: Basophils # 0.1 10^3/uL (0.0-0.1); Basophils % 0.5 %; Eosinophils # 0.1 10^3/uL (0.0-0.8); Eosinophils % 0.3 %; Hematocrit 27.4 % (37.0-47.0); Lymphocytes # 2.4 10^3/uL (0.8-4.8); Lymphocytes % 12.7 %; Mean Corpuscular HGB Conc 29.2 g/dL (30.0-36.0); Mean Corpuscular Hemoglobin 22.7 pg (28.0-34.0); Mean Corpuscular Volume 77.8 fl (81-99); Mean Platelet Volume 9.4 fL (7.4-10.4); Monocytes # 1.8 10^3/uL (0.2-0.9); Monocytes % 9.3 %; Neutrophils # 13.84 10^3/uL (1.8-7.7); Neutrophils % 72.9 %; Nucleated Red Blood Cells # 0.3 /100WBC; Nucleated Red Blood Cells % 1.5 %; Platelet Count 391 10^3/cmm (130-400); Red Blood Count 3.52 10^6/uL (4.1-5.3); Red Cell Distribution Width 18.6 % (12.1-15.1)
[2022-10-23 12:13] LABS: D Dimer 0.86 ug/mIFEU (0-0.59)
[2022-10-23 12:17] LABS: Hematocrit 27.4 % (37.0-47.0)
[2022-10-23 12:18] LABS: Retic Production Index 1.37
[2022-10-23 12:26] LABS: Anion Gap 16.4 (5-19); Blood Urea Nitrogen 5 mg/dL (6-20); Calcium 7.7 mg/dL (8.5-10.5); Carbon Dioxide 18 mmol/L (22-29); Chloride 109 mmol/L (98-107); Glomerular Filtration Rate 144.9 mL/min (90-130); Glucose 98 mg/dL (65-115); Magnesium 1.9 mg/dL (1.7-2.3); Osmolality Calculated 287 mOsm/kg (285-295); Potassium 3.4 mmol/L (3.5-5.1); Sodium 140 mmol/L (136-145)
[2022-10-23 12:27] LABS: Lactate Dehydrogenase 257 U/L (135-214)
[2022-10-23] MEDS: vancomycin 1,500 MG/300 ML PIGGYBACK 200 MG IV (14:30)
--- NOTE | 2022-10-23 17:16 | P.PN_ITS ---
Subjective Subjective: Currently this morning she declined transfer to ICU. Raising her voice with staff, throwing objects. During my visit late morning she is now calm, reports feeling better. Reports abdominal pain has resolved. Her mother is sitting across from her bed and and she is visited by her father and brother as well. We discussed her anemia, discussed findings so far. She denies having any hematochezia or melena. Denies any obvious overt bleeding. Vitals/I&O/Wt Last Vital Signs Temp 98.7 F 10/23/22 16:41 Pulse 114 H 10/23/22 16:41 Resp 12 10/23/22 16:41 BP 121/85 10/23/22 16:41 Pulse Ox 95 10/23/22 16:41 O2 Del Method Room Air 10/23/22 16:41 10/23/22 10/23/22 10/23/22 06:59 14:59 22:59 Intake Total 3570.000 / 6627.500 1057.583 / 1057.583 Balance 3570.000 / 6627.500 1057.583 / 1057.583 Weight last 48 hrs Weight 100.783 kg Physical Exam Narrative: Accompanied by her family. Const: COMMON NORMALS: patient oriented x3 and alert GENERAL APPEARANCE: cooperative and ill appearing NUTRITIONAL APPEARANCE: obese ORIENTATION/CONSCIOUSNESS: Yes awake HENMT: COMMON NORMALS: oropharynx normal Neck/C-Spine: COMMON NORMALS: no JVD Resp: COMMON NORMALS: normal respiratory effort and clear to auscultation bilaterally AUSCULTATION: clear to auscultation bilaterally Cardio: COMMON NORMALS: no JVD, regular rhythm, S1 normal heart sound present, S2 normal heart sound present and No murmurs present (Cardio) RHYTHM: regular rhythm HEART SOUNDS: S1 normal heart sound present and S2 normal heart sound present GI: COMMON NORMALS: Soft to palpation PALPATION: Yes Soft to palpation and Yes Tenderness to palpation present (GI) (Mild to moderate tenderness on palpation) Extremity: COMMON NORMALS: no joint enlargement and no pedal edema Neuro: COMMON NORMALS: patient oriented x3 and moves all extremities SENSORIUM/ORIENTATION: Yes alert Skin: COMMON NORMALS: no rashes or lesions noted GENERAL SKIN EXAM: no rashes or lesions noted OTHER: No petechia or bruising. Data 10/23/22 11:45 10/23/22 11:45 Micro: Microbiology 10/21/22 19:55 Urine Culture - Preliminary Urine,Clean Catch Gram Negative Rods 10/21/22 19:30 Blood Culture - Preliminary Blood NEGATIVE TO DATE 10/21/22 19:30 Blood Culture - Preliminary Blood NEGATIVE TO DATE A&P Assessment and plan (1) Pyelonephritis: Gram-negative rods noted in urine. Symptomatically she feels better. This morning leukocytosis with improvement down to 15.8 but significant decrease in hemoglobin at 5.9. Follow-up urine culture. Blood culture also reviewed, so far negative. Complicated UTI with pyelonephritis. Continue cefepime, vancomycin. Follow-up urine culture. Pain control, nausea control. (2) Anemia: Severe potentially life-threatening anemia, hemoglobin down to 5.9. Discussed with her and her parents severity of anemia and decreased to 9.1 on presentation. Etiology of this is not clear. Discussed work-up so far and additional studies requested. Discussed with her noted to have iron deficiency with iron saturation low at 3.3%. This certainly may suggest chronicity to the anemia with possible chronic loss, possibly GI, in addition to menstrual losses. We discussed with her additionally consideration of loss with bleeding versus hemolysis, versus decreased production. Seems there may be a combination of at least chronic loss, as well as decreased production due to severe iron deficiency. We are checking for hemolysis as discussed with her and her family at bedside, requested LDH, haptoglobin, DIC panel, peripheral smear. Discussed additionally reviewed CT abdomen pelvis study with radiology, small mount of pelvic fluid possibly from ruptured ovarian cyst, but not enough to explain significant drop. Component of dilution considered as well with continued IV hydration and likely chronic anemia now showing more true extent of her blood counts. Additionally she declines hematochezia or melena. Requesting Hemoccult. Discussed with her and family purpose of these tests. She is agreeable. Further assessment pending with other considerations including DIC given some D- dimer abnormality acute infection, Has not received heparin products to suggest HIT. TTP Check INR. No petechia or bruising or overt bleeding noted. Reassess CBC tonight. Follow-up CBC, chemistry with liver parameters tomorrow. 2 units RBC transfused today, monitor closely. Discussed with her to let us know in case of any additional symptoms. Cardiac monitoring. TSH are normal. Microcytic. Iron studies appreciated, iron 12, saturation 3.3, iron deficiency anemia. Ferritin 35. As she is still actively in sepsis hold off iron supplementation for now, resume once sepsis under control. (3) Pelvic fluid collection: Small amount of complex fluid in the pelvis suspected from ruptured hemorrhagic cyst discussed with her and her mother. Likely contributing to her abdominal pain and other symptoms. Pain and nausea control. Ultrasound results appreciated, normal endometrium and uterus, both ovaries slightly enlarged with small cyst. No mass or torsion. (4) Sepsis: Noted gram-negative rods in urine. Continue cefepime. Empirically also vancomycin. Leukocytosis overall has improved. Does have persistent tachycardia. Subjectively today feeling much better. (5) Thrombocytosis: May be acute phase reactant secondary to sepsis. Additional work-up as above under anemia. Follow-up CBC requested. (6) Cough: (7) Leukocytosis: (8) Hypokalemia: Again hypokalemic, potassium 3.4. Mildly low magnesium 1.9. Replace additional potassium, replace magnesium. Recheck chemistry and magnesium in the morning. Plan #Sepsis secondary to acute pyelonephritis #Low-grade temperature #Cough most likely 2/2 upper respiratory viral illness #Hematuria, dysuria #Thrombocytosis #Leukocytosis #Anemia #Hypokalemia Hepatic steatosis. Abnormal D-dimer: Mild abnormality D-dimer 0.64 possibly related to sepsis. Additional assessment as above under anemia. We will follow-up study. Contrast CT including chest without suggestion of PE. Noted negative venous duplex ultrasound. Behavioral concern: expressed by nursing staff, concern raised for possibility of some degree of developmental delay, noted raising voice at staff during discussions of important health issues, possibly health altering or life-thre atening, declined transfer to ICU, throwing objects, demanding answers immediately, upset when TV is turned off to have a discussion regarding life- threatening anemia and need for blood transfusion and transfer to ICU. Mother at bedside at the time. Attestations Medical Necessity Statement*: Continue admission for assessment management of severe acute anemia, complicated UTI with pyelonephritis, sepsis. Diagnoses Pyelonephritis N12 Anemia D64.9 Pelvic fluid collection R18.8 Sepsis A41.9 Thrombocytosis D75.839 Cough R05.9 Leukocytosis D72.829 Hypokalemia E87.6
[2022-10-23] MEDS: benzonatate 100 mg Capsule PO (19:09)
[2022-10-23 20:06] LABS: Basophils # 0.1 10^3/uL (0.0-0.1); Basophils % 0.5 %; Eosinophils # 0.1 10^3/uL (0.0-0.8); Eosinophils % 0.6 %; Hematocrit 31.9 % (37.0-47.0); Hemoglobin 9.3 g/dL (11.5-15.3); Lymphocytes # 2.6 10^3/uL (0.8-4.8); Lymphocytes % 13.9 %; Mean Corpuscular HGB Conc 29.2 g/dL (30.0-36.0); Mean Corpuscular Hemoglobin 22.3 pg (28.0-34.0); Mean Corpuscular Volume 76.5 fl (81-99); Mean Platelet Volume 9.7 fL (7.4-10.4); Monocytes # 1.2 10^3/uL (0.2-0.9); Monocytes % 6.7 %; Neutrophils # 14.05 10^3/uL (1.8-7.7); Neutrophils % 75.3 %; Nucleated Red Blood Cells # 0.3 /100WBC; Nucleated Red Blood Cells % 1.4 %; Platelet Count 453 10^3/cmm (130-400); Red Blood Count 4.17 10^6/uL (4.1-5.3); Red Cell Distribution Width 18.5 % (12.1-15.1); White Blood Count 18.6 10^3/uL (4.0-10.0)
[2022-10-23 20:21] LABS: Troponin(5th) Baseline 17 ng/L (0-10)
[2022-10-23 21:40] LABS: Troponin 5 2HR 18.68 ng/L (0-10)
[2022-10-23] MEDS: iohexol 350 mg/mL 500 mL Btl (per mL) IV (21:41)
[2022-10-23 21:45] LABS: Troponin 5 2HR Delta 1.68 ABS# (0-10)
--- NOTE | 2022-10-23 22:23 | ECG_ITS ---
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 Measurements Intervals [place] Rate: 109 P: 87 IA: 143 QRS: -1 QRSD: 81 T: -20 QT: 327 QTc: 441 Interpretive Statements SINUS TACHYCARDIA LOW QRS VOLTAGE IN PRECORDIAL LEADS [QRS DEFLECTION < 1.0 mV IN CHEST LEADS] POSSIBLE ANTERIOR MYOCARDIAL INFARCTION , PROBABLY OLD [30 ms Q WAVE IN V3/V4, OR R < 0.2 mV IN V4] POSSIBLE INFERIOR MYOCARDIAL INFARCTION , OF INDETERMINATE AGE [30 ms Q WAVE IN II/aVF] Compared to ECG 10/23/2022 01:02:33 Low QRS voltage now present Myocardial infarct finding now present T-wave abnormality no longer present Electronically Signed On 10-24-2022 10:33:21 CDT by Lamont Garcia M.D. [id number]
[2022-10-24] VITALS (9 sets, daily range): BP systolic 114–140; BP diastolic 72–83; PULSE 104–127; RESP 16–18; TEMP 36.7–37.2; O2SAT 96–99
[2022-10-24] MEDS: vancomycin 1,500 MG/300 ML PIGGYBACK 200 MG IV ×3 (01:35→21:39)
--- NOTE | 2022-10-24 03:12 | ECG_ITS ---
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 Measurements Intervals [place] Rate: 121 P: 50 HI: 138 QRS: 60 QRSD: 78 T: -22 QT: 314 QTc: 447 Interpretive Statements SINUS TACHYCARDIA NONSPECIFIC ST & T-WAVE ABNORMALITY Compared to ECG 10/23/2022 22:23:58 T-wave abnormality now present Myocardial infarct finding no longer present Electronically Signed On 10-24-2022 10:32:07 CDT by Lamont Garcia M.D. [id number]
--- NOTE | 2022-10-24 05:03 | PC.NURSE ---
patient refused all am labs, instructed on the importance of, verbalizes understanding, states i do not care after this last iv put in, i am done with needles, no more sticks.
[2022-10-24] MEDS: cefepime 1,000 MG in sodium chloride 0.9% (plus) 50 ML 100 MG IV (08:18)
[2022-10-24] MEDS: HYDROmorphone 1 mg/mL INJ 1 mL 0.5 MG IVP (10:27)
[2022-10-24] MEDS: ALPRAZolam 0.5 mg Tablet 0.25 MG PO (10:27)
[2022-10-24] MEDS: pantoprazole 40 mg SDV IVP ×2 (11:00→21:38)
--- NOTE | 2022-10-24 11:20 | PC.NURSE ---
MIDLINE placed due to poor peripheral access and patient refusing lab draws due to multiple sticks. Dr. Siddiqi ordered MIDLINE and ordered it can be used for blood draws. Primary nurse, Klarissa, notified.
[2022-10-24] MEDS: sodium chloride 0.9 % (flush) syringe 10 mL IV (11:59)
[2022-10-24 12:50] LABS: Basophils # 0.1 10^3/uL (0.0-0.1); Basophils % 0.5 %; Eosinophils # 0.1 10^3/uL (0.0-0.8); Eosinophils % 0.5 %; Hematocrit 26.8 % (37.0-47.0); Hemoglobin 7.9 g/dL (11.5-15.3); Lymphocytes # 1.7 10^3/uL (0.8-4.8); Lymphocytes % 11.7 %; Mean Corpuscular HGB Conc 29.5 g/dL (30.0-36.0); Mean Corpuscular Volume 78.1 fl (81-99); Mean Platelet Volume 9.6 fL (7.4-10.4); Monocytes # 1.1 10^3/uL (0.2-0.9); Monocytes % 7.7 %; Neutrophils # 11.25 10^3/uL (1.8-7.7); Neutrophils % 76.9 %; Nucleated Red Blood Cells # 0.2 /100WBC; Nucleated Red Blood Cells % 1.4 %; Platelet Count 431 10^3/cmm (130-400); Red Blood Count 3.43 10^6/uL (4.1-5.3); Red Cell Distribution Width 18.7 % (12.1-15.1); White Blood Count 14.6 10^3/uL (4.0-10.0)
[2022-10-24 12:53] LABS: Troponin 5 6HR 17.33 ng/L (0-10)
[2022-10-24 12:56] LABS: Vancomycin Trough 8.1 ug/mL (10-15)
[2022-10-24 12:57] LABS: Alanine Aminotransferase 30 U/L (0-33); Albumin Level 3.6 g/dL (3.5-5.2); Alkaline Phosphatase 63 U/L (35-105); Anion Gap 12.5 (5-19); Aspartate Amino Transferase 33 U/L (0-32); Blood Urea Nitrogen 5 mg/dL (6-20); Calcium 8.1 mg/dL (8.5-10.5); Carbon Dioxide 21 mmol/L (22-29); Chloride 101 mmol/L (98-107); Globulin 3.1 g/dL (1.3-4.6); Glomerular Filtration Rate 144.9 mL/min (90-130); Glucose 110 mg/dL (65-115); Osmolality Calculated 270 mOsm/kg (285-295); Potassium 3.5 mmol/L (3.5-5.1); Sodium 131 mmol/L (136-145); Total Bilirubin 0.4 mg/dL (0.15-1.2); Total Protein 6.7 g/dL (6.6-8.7)
[2022-10-24 13:04] LABS: Troponin 5 6HR Delta 0.33 ng/L (0-12)
[2022-10-24 15:45] LABS: Adenovirus Not Detected (NOT DETECT); Chlamydia Pneumoniae Not Detected (NOT DETECT); Coronavirus 229E,HKU1,NL63,OC4 Not Detected (NOT DETECT); Human Metapneumovirus Not Detected (NOT DETECT); Human Rhinovirus/Enterovirus Not Detected (NOT DETECT); Influenza A Not Detected (NOT DETECT); Influenza A H1 Not Detected (NOT DETECT); Influenza A H1-2009 Not Detected (NOT DETECT); Influenza A H3 Not Detected (NOT DETECT); Influenza B Not Detected (NOT DETECT); Mycoplasma Pneumoniae Not Detected (NOT DETECT); Parainfluenza Virus Type 1 Not Detected (NOT DETECT); Parainfluenza Virus Type 2 Not Detected (NOT DETECT); Parainfluenza Virus Type 3 Not Detected (NOT DETECT); Parainfluenza Virus Type 4 Not Detected (NOT DETECT); Respiratory Syncytial Virus A Not Detected (NOT DETECT); Respiratory Syncytial Virus B Not Detected (NOT DETECT); SARS-COV-2 Not Detected (NOT DETECT)
[2022-10-24 17:05] LABS: Basophils # 0.1 10^3/uL (0.0-0.1); Basophils % 0.4 %; Eosinophils # 0.2 10^3/uL (0.0-0.8); Eosinophils % 1.1 %; Hematocrit 26.2 % (37.0-47.0); Hemoglobin 7.8 g/dL (11.5-15.3); Lymphocytes # 2.6 10^3/uL (0.8-4.8); Lymphocytes % 17.1 %; Mean Corpuscular HGB Conc 29.8 g/dL (30.0-36.0); Mean Corpuscular Hemoglobin 22.7 pg (28.0-34.0); Mean Corpuscular Volume 76.2 fl (81-99); Mean Platelet Volume 9.5 fL (7.4-10.4); Monocytes # 1.2 10^3/uL (0.2-0.9); Monocytes % 7.9 %; Neutrophils # 10.74 10^3/uL (1.8-7.7); Neutrophils % 71.1 %; Nucleated Red Blood Cells # 0.2 /100WBC; Nucleated Red Blood Cells % 1.2 %; Platelet Count 401 10^3/cmm (130-400); Red Blood Count 3.44 10^6/uL (4.1-5.3); White Blood Count 15.1 10^3/uL (4.0-10.0)
[2022-10-24 17:22] LABS: Fibrinogen 594 mg/dL (174-498); INR 1.11 (0.8-1.2); Partial Thromboplastin Time 24.1 SECONDS (23.9-36.7)
[2022-10-24 17:26] LABS: D Dimer 1.09 ug/mIFEU (0-0.59)
[2022-10-24] MEDS: levofloxacin-dextrose 5 % 750 MG/150 ML PREMIX 100 MG IV (17:47)
--- NOTE | 2022-10-24 18:52 | CTR_ITS ---
PROCEDURE INFORMATION: Exam: CTA Chest With Contrast Exam date and time: 10/23/2022 9:41 PM Age: 32 years old Clinical indication: Pleuritic chest pain TECHNIQUE: Imaging protocol: Computed tomographic angiography of the chest with contrast. 3D rendering (Not supervised by radiologist): MIP and/or 3D reconstructed images were created by the technologist. Radiation optimization: All CT scans at this facility use at least one of these dose optimization techniques: automated exposure control; mA and/or kV adjustment per patient size (includes targeted exams where dose is matched to clinical indication); or iterative reconstruction. Contrast material: OMNI 350; Contrast volume: 85 ml; Contrast route: INTRAVENOUS (IV); REPORTING DATA: Count of CT and Cardiac NM exams in prior 12 months: This patient has received 2 known CTs and 0 known cardiac nuclear medicine studies in the 12 months prior to the current study. COMPARISON: CT angio chest w abd pel w con 11/11/2018 8:54 AM RADIATION DOSE METRICS: Total DLP (mGy-cm): 446.81 FINDINGS: Pulmonary arteries: Normal. No pulmonary emboli. Aorta: Unremarkable. No aortic aneurysm. No aortic dissection. Lungs: Scattered ground-glass opacities in the left lower lobe most prominent at the posteromedial aspect. Pleural spaces: Unremarkable. No pneumothorax. No pleural effusion. Heart: Unremarkable. No cardiomegaly. No pericardial effusion. Lymph nodes: Unremarkable. No enlarged lymph nodes. Liver: There is a diffuse decrease in hepatic parenchymal density, consistent with fatty infiltration. Bones/joints: Unremarkable. No acute fracture. Soft tissues: Unremarkable. CT/CT angio chest prot [id number] IMPRESSION: 1. Scattered ground-glass opacities in the left lower lobe most prominent at the posteromedial aspect. Nonspecific and can be seen with pneumonia, pneumonitis, and/or pulmonary edema. 2. Fatty infiltration of the liver.
--- NOTE | 2022-10-24 20:14 | PM.PN ---
Subjective Subjective: She was upset overnight as it took a number of tries to reestablish IV including attempt by a learner initially. On discussion of risks and benefits she is agreeable for placement of PICC line to allow for both blood draws and injections/infusions. Consideration of transfer to [place] was discussed as well, but for now they prefer to stay here. Vitals/I&O/Wt Last Vital Signs Temp 98.2 F 10/24/22 16:00 Pulse 104 H 10/24/22 16:00 Resp 18 10/24/22 16:00 BP 121/73 10/24/22 16:00 Pulse Ox 99 10/24/22 16:00 O2 Del Method Room Air 10/24/22 16:00 10/24/22 10/24/22 10/24/22 06:59 14:59 22:59 Intake Total 880 / 880 780 / 1660 Balance 880 / 880 780 / 1660 Physical Exam Narrative: Accompanied by her family. Const: COMMON NORMALS: patient oriented x3 and alert GENERAL APPEARANCE: cooperative and ill appearing NUTRITIONAL APPEARANCE: obese ORIENTATION/CONSCIOUSNESS: Yes awake HENMT: COMMON NORMALS: oropharynx normal Neck/C-Spine: COMMON NORMALS: no JVD Resp: COMMON NORMALS: normal respiratory effort and clear to auscultation bilaterally AUSCULTATION: clear to auscultation bilaterally Cardio: COMMON NORMALS: no JVD, regular rhythm, S1 normal heart sound present, S2 normal heart sound present and No murmurs present (Cardio) RHYTHM: regular rhythm HEART SOUNDS: S1 normal heart sound present and S2 normal heart sound present GI: COMMON NORMALS: Soft to palpation PALPATION: Yes Soft to palpation and Yes Tenderness to palpation present (GI) (Mild to moderate tenderness on palpation) Extremity: COMMON NORMALS: no joint enlargement and no pedal edema Neuro: COMMON NORMALS: patient oriented x3 and moves all extremities SENSORIUM/ORIENTATION: Yes alert Skin: COMMON NORMALS: no rashes or lesions noted GENERAL SKIN EXAM: no rashes or lesions noted OTHER: No petechia or bruising. Data 10/24/22 16:57 10/24/22 12:20 Micro: Microbiology 10/24/22 11:10 Occult Blood (FIT) - Final Stool 10/21/22 19:55 Urine Culture - Final Urine,Clean Catch Escherichia coli A&P Assessment and plan (1) Pyelonephritis: Leukocytosis now showing improvement, down to 15,000. Sinus tachycardia persists but slightly better, down to 100s-100 teens. Low-grade temp last night 100 Fahrenheit, otherwise fevers appear to be less frequent. Urine culture reviewed, noted E. coli resistant to Unasyn, tetracycline and Bactrim. Follow-up urine culture. Blood culture also reviewed, so far negative. Complicated UTI with pyelonephritis. Continue cefepime, vancomycin. Follow-up urine culture. Pain control, nausea control. (2) Anemia: Acute anemia: After responsive to distress. Some decrease in hemoglobin from 9.3 down to 7.9. She denies any obvious bleeding, and prior history noted history of heavy menses, not currently on her monthlies. Denies any bloody or black stools. Denies blood in urine. Hemoccult has been collected, noted negative. DIC panel requested, noted nonsuggestive of DIC on my interpretation. Hemolysis studies so far not suggestive of hemolysis. Peripheral smear appreciated. CT abdomen pelvis without intra-abdominal bleeding evidence, today also underwent CTA, without evidence of any bleeding in her chest. No bruising or petechiae. Further consideration of delusional component with underlying anemia with severe iron deficiency. Possibly some increased turnover due to sepsis. As culture has not been obtained, in case any effect of cefepime, change antibiotic to oral Levaquin. INR unremarkable. PTT unremarkable. Recheck additional hemoglobin tonight. TSH are normal. Microcytic. Iron studies appreciated, iron 12, saturation 3.3, iron deficiency anemia. Ferritin 35. As she is still actively in sepsis hold off iron supplementation for now, resume once sepsis under control. Discussed with overnight physician. (3) Pelvic fluid collection: Small amount of complex fluid in the pelvis suspected from ruptured hemorrhagic cyst discussed with her and her mother. Likely contributing to her abdominal pain and other symptoms. Pain and nausea control. Ultrasound results appreciated, normal endometrium and uterus, both ovaries slightly enlarged with small cyst. No mass or torsion. (4) Sepsis: Noted gram-negative rods in urine. Continue cefepime. Empirically also vancomycin. Leukocytosis overall has improved. Does have persistent tachycardia. Subjectively today feeling much better. (5) Thrombocytosis: May be acute phase reactant secondary to sepsis. Additional work-up as above under anemia. Follow-up CBC requested. (6) Cough: (7) Leukocytosis: (8) Hypokalemia: Today potassium looks better 3.5. Follow-up. Plan #Sepsis secondary to acute pyelonephritis #Low-grade temperature #Cough most likely 2/2 upper respiratory viral illness #Hematuria, dysuria #Thrombocytosis #Leukocytosis #Anemia #Hypokalemia Hepatic steatosis. Abnormal D-dimer: Mild abnormality D-dimer 0.64 possibly related to sepsis. Additional assessment as above under anemia. We will follow-up study. Contrast CT including chest without suggestion of PE. Noted negative venous duplex ultrasound. Behavioral concern: Occasionally behavioral outbursts, reported to be raising her voice, declining tests or treatments. Per discussion with her father he states that she at home may have emotionally intense reactions, and he is used to following usual routines. Discussed with him on a nonurgent basis consideration may be given to additional assessment for possibility of a degree of autism spectrum disorder. But this can be followed up on outpatient nonurgent basis. Discussed with nursing staff and overnight physician to allow ample and repeat education, avoid learners if possible to hopefully help reduce distress. Attestations Medical Necessity Statement*: Continue admission for assessment management of acute pyelonephritis, severe/life-threatening acute anemia. Diagnoses Pyelonephritis N12 Anemia D64.9 Pelvic fluid collection R18.8 Sepsis A41.9 Thrombocytosis D75.839 Cough R05.9 Leukocytosis D72.829 Hypokalemia E87.6
[2022-10-24 23:42] LABS: Basophils # 0.1 10^3/uL (0.0-0.1); Basophils % 0.5 %; Eosinophils # 0.2 10^3/uL (0.0-0.8); Eosinophils % 1.3 %; Hematocrit 26.7 % (37.0-47.0); Hemoglobin 7.8 g/dL (11.5-15.3); Lymphocytes # 2.4 10^3/uL (0.8-4.8); Lymphocytes % 16.2 %; Mean Corpuscular HGB Conc 29.2 g/dL (30.0-36.0); Mean Corpuscular Hemoglobin 22.4 pg (28.0-34.0); Mean Corpuscular Volume 76.7 fl (81-99); Mean Platelet Volume 9.3 fL (7.4-10.4); Monocytes # 1.1 10^3/uL (0.2-0.9); Monocytes % 7.3 %; Neutrophils # 10.69 10^3/uL (1.8-7.7); Neutrophils % 72.3 %; Nucleated Red Blood Cells # 0.2 /100WBC; Nucleated Red Blood Cells % 1.1 %; Platelet Count 380 10^3/cmm (130-400); Red Blood Count 3.48 10^6/uL (4.1-5.3); Red Cell Distribution Width 19.3 % (12.1-15.1); White Blood Count 14.8 10^3/uL (4.0-10.0)
[2022-10-25] VITALS (8 sets, daily range): BP systolic 108–138; BP diastolic 66–93; PULSE 90–111; RESP 17–18; TEMP 36.8–37.2; O2SAT 97–100
[2022-10-25 03:35] LABS: Basophils # 0.1 10^3/uL (0.0-0.1); Basophils % 0.5 %; Eosinophils # 0.2 10^3/uL (0.0-0.8); Eosinophils % 1.3 %; Hematocrit 27.5 % (37.0-47.0); Lymphocytes # 2.5 10^3/uL (0.8-4.8); Lymphocytes % 17.5 %; Mean Corpuscular HGB Conc 29.1 g/dL (30.0-36.0); Mean Corpuscular Hemoglobin 22.3 pg (28.0-34.0); Mean Corpuscular Volume 76.6 fl (81-99); Mean Platelet Volume 9.6 fL (7.4-10.4); Monocytes # 0.9 10^3/uL (0.2-0.9); Monocytes % 6.6 %; Neutrophils # 10.25 10^3/uL (1.8-7.7); Neutrophils % 72.2 %; Nucleated Red Blood Cells # 0.1 /100WBC; Nucleated Red Blood Cells % 0.9 %; Platelet Count 328 10^3/cmm (130-400); Red Blood Count 3.59 10^6/uL (4.1-5.3); Red Cell Distribution Width 19.5 % (12.1-15.1); White Blood Count 14.2 10^3/uL (4.0-10.0)
[2022-10-25 03:58] LABS: Alanine Aminotransferase 42 U/L (0-33); Albumin Level 3.4 g/dL (3.5-5.2); Alkaline Phosphatase 56 U/L (35-105); Anion Gap 15.6 (5-19); Aspartate Amino Transferase 38 U/L (0-32); Blood Urea Nitrogen 7 mg/dL (6-20); Calcium 8.4 mg/dL (8.5-10.5); Carbon Dioxide 20 mmol/L (22-29); Chloride 104 mmol/L (98-107); Globulin 3.3 g/dL (1.3-4.6); Glomerular Filtration Rate 117.4 mL/min (90-130); Glucose 95 mg/dL (65-115); Osmolality Calculated 280 mOsm/kg (285-295); Potassium 3.6 mmol/L (3.5-5.1); Sodium 136 mmol/L (136-145); Total Bilirubin 0.3 mg/dL (0.15-1.2); Total Protein 6.7 g/dL (6.6-8.7)
[2022-10-25] MEDS: vancomycin 1,500 MG/300 ML PIGGYBACK 200 MG IV ×2 (05:21→13:38)
[2022-10-25] MEDS: pantoprazole 40 mg SDV IVP ×2 (10:55→21:34)
[2022-10-25] MEDS: levofloxacin-dextrose 5 % 750 MG/150 ML PREMIX 100 MG IV (16:57)
--- NOTE | 2022-10-25 21:25 | P.PN_ITS ---
Subjective Subjective: She is feeling well today. Denies any abdominal pain. Denies any bleeding. In good spirits that she feels she is improving. Discussed with her and family regarding obtaining echocardiogram. Vitals/I&O/Wt Last Vital Signs Temp 98.4 F 10/25/22 20:00 Pulse 102 H 10/25/22 20:00 Resp 18 10/25/22 20:00 BP 131/85 10/25/22 20:00 Pulse Ox 100 10/25/22 20:00 O2 Del Method Room Air 10/25/22 16:00 10/25/22 10/25/22 10/25/22 06:59 14:59 22:59 Intake Total 930 / 3070 780 / 780 930 / 1710 Balance 930 / 2570 780 / 780 930 / 1710 Physical Exam Narrative: Accompanied by her family. Const: COMMON NORMALS: patient oriented x3 and alert GENERAL APPEARANCE: cooperative and ill appearing NUTRITIONAL APPEARANCE: obese ORIENTATIO N/CONSCIOUSNESS: Yes awake HENMT: COMMON NORMALS: oropharynx normal Neck/C-Spine: COMMON NORMALS: no JVD Resp: COMMON NORMALS: normal respiratory effort and clear to auscultation bilaterally AUSCULTATION: clear to auscultation bilaterally Cardio: COMMON NORMALS: no JVD, regular rhythm, S1 normal heart sound present, S2 normal heart sound present and No murmurs present (Cardio) RHYTHM: regular rhythm HEART SOUNDS: S1 normal heart sound present and S2 normal heart sound present GI: COMMON NORMALS: Soft to palpation and non-tender PALPATION: Yes Soft to palpation Extremity: COMMON NORMALS: no joint enlargement and no pedal edema Neuro: COMMON NORMALS: patient oriented x3 and moves all extremities SENSORIUM/ORIENTATION: Yes alert Skin: COMMON NORMALS: no rashes or lesions noted GENERAL SKIN EXAM: no rashes or lesions noted OTHER: No petechia or bruising. Data 10/25/22 03:20 10/25/22 03:20 Micro: Microbiology 10/24/22 11:10 Occult Blood (FIT) - Final Stool A&P Assessment and plan (1) Pyelonephritis: Leukocytosis not improving. Tachycardia slightly better. Fever now appears to be resolved. Subjectively she is feeling better. Stop vancomycin. Urine culture reviewed, noted E. coli resistant to Unasyn, tetracycline and Bactrim. Follow-up urine culture. Blood culture also reviewed, so far negative. Complicated UTI with pyelonephritis. Continue cefepime, vancomycin. Follow-up urine culture. Pain control, nausea control. (2) Anemia: Hemoglobin noted 8, platelets 328. Discussed with her family. Follow-up CBC. Hemoccult negative. DIC panel requested, noted nonsuggestive of DIC on my interpretation. Hemolysis studies so far not suggestive of hemolysis. Peripheral smear appreciated. CT abdomen pelvis without intra-abdominal bleeding evidence, today also underwent CTA, without evidence of any bleeding in her chest. No bruising or petechiae. Further consideration of delusional component with underlying anemia with severe iron deficiency. Possibly some increased turnover due to sepsis. As culture has not been obtained, in case any effect of cefepime, change antibiotic to oral Levaquin. INR unremarkable. PTT unremarkable. Recheck additional hemoglobin tonight. TSH are normal. Microcytic. Iron studies appreciated, iron 12, saturation 3.3, iron deficiency anemia. Ferritin 35. As she is still actively in sepsis hold off iron supplementation for now, resume once sepsis under control. Discussed with overnight physician. (3) Pelvic fluid collection: Small amount of complex fluid in the pelvis suspected from ruptured hemorrhagic cyst discussed with her and her mother. Likely contributing to her abdominal pain and other symptoms. Pain and nausea control. Ultrasound results appreciated, normal endometrium and uterus, both ovaries slightly enlarged with small cyst. No mass or torsion. (4) Sepsis: E. coli urine. Switched to Levaquin. Stop vancomycin. Leukocytosis improving. Tachycardia better. (5) Thrombocytosis: May be acute phase reactant secondary to sepsis. Additional work-up as above under anemia. Follow-up CBC requested. (6) Cough: (7) Leukocytosis: (8) Hypokalemia: Potassium improved. 3.6. Follow-up chemistry Plan #Sepsis secondary to acute pyelonephritis #Low-grade temperature #Cough most likely 2/2 upper respiratory viral illness #Hematuria, dysuria #Thrombocytosis #Leukocytosis #Anemia #Hypokalemia Hepatic steatosis. Abnormal D-dimer: Mild abnormality D-dimer 0.64 possibly related to sepsis. Additional assessment as above under anemia. We will follow-up study. Contrast CT including chest without suggestion of PE. Noted negative venous duplex ultrasound. Behavioral concern: Occasionally behavioral outbursts, reported to be raising her voice, declining tests or treatments. Per discussion with her father he states that she at home may have emotionally intense reactions, and he is used to following usual routines. Discussed with him on a nonurgent basis consideration may be given to additional assessment for possibility of a degree of autism spectrum disorder. But this can be followed up on outpatient nonurgent basis. Discussed with nursing staff and overnight physician to allow ample and repeat education, avoid learners if possible to hopefully help reduce distress. Attestations Medical Necessity Statement*: Continue admission for assessment management of complicated UTI, pyelonephritis, acute anemia. Diagnoses Pyelonephritis N12 Anemia D64.9 Pelvic fluid collection R18.8 Sepsis A41.9 Thrombocytosis D75.839 Cough R05.9 Leukocytosis D72.829 Hypokalemia E87.6
[2022-10-25 21:45] LABS: Vancomycin Trough 12.6 ug/mL (10-15)
[2022-10-25] MEDS: sodium chloride 0.9 % (flush) syringe 10 mL IV (23:00)
[2022-10-26] VITALS (9 sets, daily range): BP systolic 105–136; BP diastolic 71–86; PULSE 77–109; RESP 16–20; TEMP 36.4–37.6; O2SAT 99–100
[2022-10-26 05:18] LABS: Basophils # 0.1 10^3/uL (0.0-0.1); Basophils % 0.5 %; Eosinophils # 0.2 10^3/uL (0.0-0.8); Eosinophils % 1.3 %; Hematocrit 28.5 % (37.0-47.0); Hemoglobin 8.2 g/dL (11.5-15.3); Lymphocytes % 12.4 %; Mean Corpuscular HGB Conc 28.8 g/dL (30.0-36.0); Mean Corpuscular Hemoglobin 22.5 pg (28.0-34.0); Mean Corpuscular Volume 78.3 fl (81-99); Mean Platelet Volume 9.4 fL (7.4-10.4); Monocytes # 0.8 10^3/uL (0.2-0.9); Monocytes % 5.3 %; Neutrophils # 12.53 10^3/uL (1.8-7.7); Neutrophils % 78.3 %; Nucleated Red Blood Cells # 0.2 /100WBC; Nucleated Red Blood Cells % 1.1 %; Platelet Count 413 10^3/cmm (130-400); Red Blood Count 3.64 10^6/uL (4.1-5.3); Red Cell Distribution Width 21.2 % (12.1-15.1)
[2022-10-26 05:35] LABS: Alanine Aminotransferase 44 U/L (0-33); Albumin Level 3.6 g/dL (3.5-5.2); Alkaline Phosphatase 98 U/L (35-105); Anion Gap 16.8 (5-19); Aspartate Amino Transferase 33 U/L (0-32); Blood Urea Nitrogen 8 mg/dL (6-20); Calcium 8.9 mg/dL (8.5-10.5); Carbon Dioxide 22 mmol/L (22-29); Chloride 103 mmol/L (98-107); Globulin 3.3 g/dL (1.3-4.6); Glomerular Filtration Rate 98.3 mL/min (90-130); Glucose 102 mg/dL (65-115); Osmolality Calculated 285 mOsm/kg (285-295); Potassium 3.8 mmol/L (3.5-5.1); Sodium 138 mmol/L (136-145); Total Bilirubin 0.2 mg/dL (0.15-1.2); Total Protein 6.9 g/dL (6.6-8.7)
--- NOTE | 2022-10-26 06:00 | USCV_ITS ---
Moustapha Araceli Age: 32 Gender: F : 1990 Exam Date: 10/26/2022 01:40 Ordering Phys: Alok Siddiqi MD Technologist: JATIN [place] [facility] [place]: Giurgius passages on CT, assess cardiac function, valves. No history of cardiac intervention per patient. BP: 126 / 81 HR: 89 Rhythm: Sinus Technical Quality: Adequate MEASUREMENTS (Male / Female) Normal Values 2D ECHO LV Diastolic Diameter PLAX 3.9 cm 4.2 - 5.9 / 3.9 - 5.3 cm LV Systolic Diameter PLAX 2.7 cm IVS Diastolic Thickness 0.9 cm 0.6 - 1.0 / 0.6 - 0.9 cm IVS Systolic Thickness 1.4 cm LVPW Diastolic Thickness 1.0 cm 0.6 - 1.0 / 0.6 - 0.9 cm LVPW Systolic Thickness 1.3 cm LVOT Diameter 2.0 cm LV Ejection Fraction 2D Teich 61.3 % LV Ejection Fraction MOD 2C 66.6 % LV Ejection Fraction 2C AL 67.9 % LA Diameter 3.1 cm LA Width 3.4 cm LA Height 5.2 cm RA Width 3.5 cm RA Height 4.5 cm Aorta at Sinotubular Diameter 2.5 cm IVC Diameter 2.1 cm M-MODE Aortic Annulus Diameter 2.6 cm LA Ao Ratio MM 1.2 DOPPLER AV Peak Velocity 155.0 cm/s LVOT Peak Velocity 95.0 cm/s AV Area Cont Eq vti 1.7 cm squared AV Area Cont Eq pk 1.9 cm squared MV Peak Velocity 146.0 cm/s MV Area PHT 4.2 cm squared Mitral E to A Ratio 1.8 MV E' Velocity 70.0 cm/s Mitral E to MV E' Ratio 9.0 Mitral E to LV E' Lateral Ratio 7.7 Mitral E to LV E' Septal Ratio 11.0 TR Peak Velocity 217.3 cm/s TR Peak Gradient 18.9 mmHg TV Peak E Velocity 66.0 cm/s Right Atrial Pressure 5.0 mmHg Pulmonary Artery Systolic Pressu 23.9 mmHg PV Peak Velocity 106.0 cm/s RV Acceleration Time 0.1 s RV Ejection Time 0.3 s RV AcT/ET 0.2 FINDINGS Left Ventricle Left ventricle is normal in size. LV systolic function is normal with EF of 60 to 65%. No regional wall motion normalities are seen. Right Ventricle Normal in size and function Right Atrium Normal in size Left Atrium Normal in size Mitral Valve Structurally normal mitral valve. Mild mitral regurgitation. Aortic Valve Normal aortic valve. No significant stenosis or regurgitation seen. Tricuspid Valve Mild tricuspid regurgitation. Pulmonary artery systolic pressure is normal. Pulmonic Valve Not well-visualized. Trace pulmonary insufficiency. Pericardium Normal Aorta Normal IVC Appears to be normal CONCLUSIONS LV systolic function is normal with EF of 60 to 65% Mild mitral regurgitation Mild tricuspid regurgitation Trace pulmonary insufficiency No comparison studies are available Lamont Garcia MD (Electronically Signed) Final Date: 07 November 2022 15:08 S
[2022-10-26] MEDS: sodium chloride 0.9 % (flush) syringe 10 mL IV ×2 (09:47→21:59)
[2022-10-26] MEDS: pantoprazole 40 mg SDV IVP ×2 (09:47→21:59)
[2022-10-26] MEDS: metoprolol tartrate 25 mg Tablet PO ×2 (14:16→21:58)
[2022-10-26] MEDS: levofloxacin-dextrose 5 % 750 MG/150 ML PREMIX 100 MG IV (16:55)
--- NOTE | 2022-10-26 20:12 | PM.PN ---
Subjective Subjective: Denies pain or discomfort. No new symptoms. Still has a little cough. Vitals/I&O/Wt Last Vital Signs Temp 98.8 F 10/26/22 15:55 Pulse 104 H 10/26/22 15:55 Resp 16 10/26/22 15:55 BP 126/81 10/26/22 15:55 Pulse Ox 99 10/26/22 15:55 O2 Del Method Room Air 10/26/22 15:55 10/26/22 10/26/22 10/26/22 06:59 14:59 22:59 Intake Total 1476 / 1476 750 / 2226 Output Total 200 / 200 Balance 1276 / 1276 750 / 6 Physical Exam Narrative: Accompanied by her mother. Const: COMMON NORMALS: patient oriented x3 and alert GENERAL APPEARANCE: cooperative and ill appearing NUTRITIONAL APPEARANCE: obese ORIENTATION/CONSCIOUSNESS: Yes awake HENMT: COMMON NORMALS: oropharynx normal Neck/C-Spine: COMMON NORMALS: no JVD Resp: COMMON NORMALS: normal respiratory effort and clear to auscultation bilaterally AUSCULTATION: clear to auscultation bilaterally Cardio: COMMON NORMALS: no JVD, regular rhythm, S1 normal heart sound present, S2 normal heart sound present and No murmurs present (Cardio) RHYTHM: regular rhythm HEART SOUNDS: S1 normal heart sound present and S2 normal heart sound present GI: COMMON NORMALS: Soft to palpation and non-tender PALPATION: Yes Soft to palpation and Yes Tenderness to palpation present (GI) (Mild to moderate tenderness on palpation) Extremity: COMMON NORMALS: no joint enlargement and no pedal edema Neuro: COMMON NORMALS: patient oriented x3 and moves all extremities SENSORIUM/ORIENTATION: Yes alert Skin: COMMON NORMALS: no rashes or lesions noted GENERAL SKIN EXAM: no rashes or lesions noted OTHER: No petechia or bruising. Data 10/26/22 04:17 10/26/22 04:17 Micro: Microbiology 10/21/22 19:30 Blood Culture - Final Blood NO GROWTH AFTER 5 DAYS 10/21/22 19:30 Blood Culture - Final Blood NO GROWTH AFTER 5 DAYS A&P Assessment and plan (1) Pyelonephritis: Noted slight worsening leukocytosis today 16,000. Symptomatically she is doing well. Sinus tachycardia overall with improvement, still at 104. Check procalcitonin. Continue Levaquin. Blood cultures so far negative. E. coli in urine culture. Complicated UTI with pyelonephritis. (2) Anemia: Review of hemoglobin today 8.2. Platelets 413. Discussed with her family. Follow-up CBC. Hemoccult negative. DIC panel requested, noted nonsuggestive of DIC on my interpretation. Hemolysis studies so far not suggestive of hemolysis. Peripheral smear appreciated. CT abdomen pelvis without intra-abdominal bleeding evidence, today also underwent CTA, without evidence of any bleeding in her chest. No bruising or petechiae. Further consideration of delusional component with underlying anemia with severe iron deficiency. Possibly some increased turnover due to sepsis. As culture has not been obtained, in case any effect of cefepime, change antibiotic to oral Levaquin. INR unremarkable. PTT unremarkable. Recheck additional hemoglobin tonight. TSH are normal. Microcytic. Iron studies appreciated, iron 12, saturation 3.3, iron deficiency anemia. Ferritin 35. As she is still actively in sepsis hold off iron supplementation for now, resume once sepsis under control. Discussed with overnight physician. (3) Pelvic fluid collection: Small amount of complex fluid in the pelvis suspected from ruptured hemorrhagic cyst discussed with her and her mother. Likely contributing to her abdominal pain and other symptoms. Pain and nausea control. Ultrasound results appreciated, normal endometrium and uterus, both ovaries slightly enlarged with small cyst. No mass or torsion. (4) Sepsis: E. coli urine. Switched to Levaquin. Stop vancomycin. Leukocytosis improving. Tachycardia better. (5) Thrombocytosis: May be acute phase reactant secondary to sepsis. Additional work-up as above under anemia. Follow-up CBC requested. (6) Cough: (7) Leukocytosis: (8) Hypokalemia: Potassium improved. 3.6. Follow-up chemistry Plan Giurgius opacity on CT, anemia, assess TTE for LV function, valves. #Sepsis secondary to acute pyelonephritis #Low-grade temperature #Cough most likely 2/2 upper respiratory viral illness #Hematuria, dysuria #Thrombocytosis #Leukocytosis #Anemia #Hypokalemia Hepatic steatosis. Abnormal D-dimer: Mild abnormality D-dimer 0.64 possibly related to sepsis. Additional assessment as above under anemia. We will follow-up study. Contrast CT including chest without suggestion of PE. Negative venous duplex ultrasound. Occasional short temper reported with staff. I have not heard of any further issues recently. Attestations Medical Necessity Statement*: Continue admission for assessment management of complicated UTI, pyelonephritis, ongoing SIRS, acute anemia. Diagnoses Pyelonephritis N12 Anemia D64.9 Pelvic fluid collection R18.8 Sepsis A41.9 Thrombocytosis D75.839 Cough R05.9 Leukocytosis D72.829 Hypokalemia E87.6
[2022-10-27] VITALS (8 sets, daily range): BP systolic 103–136; BP diastolic 69–85; PULSE 80–98; RESP 16–18; TEMP 36.7–36.9; O2SAT 98–100
--- NOTE | 2022-10-27 05:31 | PC.NURSE ---
Attempted to pull blood from pts midline. Unable to obtain blood sample, pt refusing to have blood drawn via chemical laboratory technician.
[2022-10-27] MEDS: pantoprazole 40 mg SDV IVP (09:38)
[2022-10-27] MEDS: metoprolol tartrate 25 mg Tablet PO (09:39)
[2022-10-27] MEDS: sodium chloride 0.9 % (flush) syringe 10 mL IV (10:04)
[2022-10-27] MEDS: levofloxacin-dextrose 5 % 750 MG/150 ML PREMIX 100 MG IV (16:06)
--- NOTE | 2022-10-27 18:14 | PC.NURSE ---
Discharge education reviewed with patient and mother at bedside. They both verbally acknowledged discharge plans and follow up. Midline removed with occlusive dressing. All questions answered.
--- NOTE | 2022-10-27 22:22 | PM.DCS ---
Discharge Providers Date of Admission: 10/22/22 01:04 Date of Discharge: October 27, 2022 Attending Provider at Admission: Julia Jordan MD Attending Provider at Discharge: Alok Siddiqi Diagnoses at Discharge Discharge Diagnosis (1) Pyelonephritis: Status: Acute (2) Anemia: Status: Acute (3) Pelvic fluid collection: Status: Acute (4) Sepsis: Status: Acute (5) Thrombocytosis: Status: Acute (6) Cough: Status: Acute (7) Leukocytosis: Status: Acute (8) Hypokalemia: Status: Acute Reason for Visit Reason for Visit: SOB, Abd pains, N/V Hospital Course Hospital Course Presenting due to generalized weakness, abdominal pain, vomiting and diarrhea, cough, congestion, the latter began about 2 weeks earlier now getting better, also noted some blood in her urine. On presentation found to be in sepsis with complicated UTI with pyelonephritis, as well as cystic collection of material posterior to the uterus, 3.9 cm, further assessed by ultrasound finding of suspected of ruptured hemorrhagic cyst. Hepatic steatosis. Renal function remained normal throughout hospitalization and without proteinuria. She was started on broad-spectrum antibiotic coverage with cefepime and vancomycin, received fluid challenge and IV hydration. Required pain and nausea control parenterally. With noted leukocytosis and thrombocytosis, spiking fevers. Overnight onto 08/25 with transient hypotension, with finding of hemoglobin decreased to 5.9, at that time refused transfer to intensive care unit. Refused morning blood work. Subsequently blood work without finding of hemolysis, leukocytosis and thrombocytosis on peripheral smear, without schistocytes, with noted severe iron deficiency. Denied any acute blood loss, no hematuria, no hematemesis, hematochezia or melena. Hemoccult negative. Repeat CT abdomen pelvis without acute intra-abdominal or intrapelvic pathology. Received fluid boluses, subsequently received 2 units RBC transfusion. Subsequently complaining of cough, dyspnea, with abnormal D-dimer, without PE finding on CTA, no DVT on venous duplex, with scattered groundglass opacities and left lower lobe, most prominent at posteromedial aspect, nonspecific, possibly pneumonia and/or pulmonary edema. As discussed with her and parents possibility of TACO, TRALI. Other etiologies. No suggestion of DIC on blood work. Respiratory viral panel obtained and negative. PICC line had to be transiently placed due to poor peripheral access for blood draws and infusions. Continued on broad-spectrum antibiotic coverage with cefepime and vancomycin. Urine culture eventually growing E. coli, blood cultures remaining negative. Cefepime switched to Levaquin in case contributing to anemia. Etiology of anemia thought to be combination of iron deficiency, delusional and sepsis. Received a dose of iron supplementation, further resumed with resolving sepsis. No further decrease in hemoglobin. Echocardiogram has been requested as well, obtained, results are pending, please follow-up as she requested discharge before the results returned. Subjectively she is feeling much better, with symptoms resolved, no residual abdominal pain or discomfort, tolerating oral intake, ambulating and eager to return home. Physical Exam Narrative: Accompanied by her mother. Const: COMMON NORMALS: patient oriented x3 and alert GENERAL APPEARANCE: cooperative and ill appearing NUTRITIONAL APPEARANCE: obese ORIENTATION/CONSCIOUSNESS: Yes awake HENMT: COMMON NORMALS: oropharynx normal Neck/C-Spine: COMMON NORMALS: no JVD Resp: COMMON NORMALS: normal respiratory effort and clear to auscultation bilaterally AUSCULTATION: clear to auscultation bilaterally Cardio: COMMON NORMALS: no JVD, regular rhythm, S1 normal heart sound present, S2 normal heart sound present and No murmurs present (Cardio) RHYTHM: regular rhythm HEART SOUNDS: S1 normal heart sound present and S2 normal heart sound present GI: COMMON NORMALS: Soft to palpation and non-tender PALPATION: Yes Soft to palpation and Yes Tenderness to palpation present (GI) (Mild to moderate tenderness on palpation) Extremity: COMMON NORMALS: no joint enlargement and no pedal edema Neuro: COMMON NORMALS: patient oriented x3 and moves all extremities SENSORIUM/ORIENTATION: Yes alert Skin: COMMON NORMALS: no rashes or lesions noted GENERAL SKIN EXAM: no rashes or lesions noted OTHER: No petechia or bruising. Discharge Data Studies Completed and Pending Completed Studies During Hospitalization Category Date Time Status CT abdomen pelvis wo con [id number] Stat Cat Scan 10/23/22 02:[address] angio chest PE protcl [id number] Stat Cat Scan 10/24/22 18:[address] chest abdpel w/*[id number] Stat Cat Scan 10/21/22 20:28 Completed XR chest 1V portable [id number] Stat Exams 10/21/22 18:44 [place] [id number] Routine Ultrasound 10/22/22 14:06 Completed US pelvic complete* [id number] Routine Ultrasound 10/22/22 03:06 Completed Pending at discharge Category Date Time Status CV. echo complete* [id number] Routine Ultrasound 10/26/22 06:00 Taken Radiology Impressions Chest X-Ray 10/21/22 18:44 IMPRESSION: No acute findings. Chest/Abdomen/Pelvis CT 10/21/22 20:28 IMPRESSION: No acute findings. IMPRESSION: 1. Cystic collection of material posterior to the uterus measuring 3.9 cm may reflect a collection of ovarian cysts, consider further characterization with pelvic ultrasound. 2. Mild left kidney perinephric edema with some possible left kidney upper pole heterogeneity, please correlate for possible pyelonephritis. 3. Probable dependent subcutaneous edema in the posterior lumbar region. 4. Fluid in the uterine cavity likely related menstrual status. 5. Hepatic steatosis. Pelvis Ultrasound 10/22/22 03:06 IMPRESSION: 1. Normal uterus and endometrium. 2. Both ovaries are very slightly enlarged with small cysts. No mass or torsion. 3. Small amount of complex fluid in the pelvis is probably blood from a hemorrhagic cyst. Abdomen/Pelvis CT 10/23/22 02:32 IMPRESSION: No acute intra-abdominal or intrapelvic pathology. Chest CTA 10/24/22 18:52 IMPRESSION: 1. Scattered ground-glass opacities in the left lower lobe most prominent at the posteromedial aspect. Nonspecific and can be seen with pneumonia, pneumonitis, and/or pulmonary edema. 2. Fatty infiltration of the liver. Laboratory Results WBC 16.0 10^3/uL (4.0-10.0) H 10/26/22 04:17 RBC 3.64 10^6/uL (4.1-5.3) L 10/26/22 04:17 Hgb 8.2 g/dL (11.5-15.3) L 10/26/22 04:17 Hct 28.5 % (37.0-47.0) L 10/26/22 04:17 MCV 78.3 fl (81-99) L 10/26/22 04:17 MCH 22.5 pg (28.0-34.0) L 10/26/22 04:17 MCHC 28.8 g/dL (30.0-36.0) L 10/26/22 04:17 RDW 21.2 % (12.1-15.1) H 10/26/22 04:17 Plt Count 413 10^3/cmm (130-400) H 10/26/22 04:17 MPV 9.4 fL (7.4-10.4) 10/26/22 04:17 Neut % (Auto) 78.3 % 10/26/22 04:17 Lymph % (Auto) 12.4 % 10/26/22 04:17 [place] % (Auto) 5.3 % 10/26/22 04:17 Eos % (Auto) 1.3 % 10/26/22 04:17 Baso % (Auto) 0.5 % 10/26/22 04:17 Reticulocyte % (Auto) 2.0 % (0.5-2.0) 10/23/22 11:45 Neut # (Auto) 12.53 10^3/uL (1.8-7.7) H 10/26/22 04:17 Lymph # (Auto) 2.0 10^3/uL (0.8-4.8) 10/26/22 04:17 [place] # (Auto) 0.8 10^3/uL (0.2-0.9) 10/26/22 04:17 Eos # (Auto) 0.2 10^3/uL (0.0-0.8) 10/26/22 04:17 Baso # (Auto) 0.1 10^3/uL (0.0-0.1) 10/26/22 04:17 Nucleated RBC % (auto) 1.1 % 10/26/22 04:17 Nucleated RBCs # 0.2 /100WBC 10/26/22 04:17 Retic Production Index 1.37 10/23/22 11:45 Haptoglobin 321.0 mg/L (30-200) H 10/23/22 11:45 PT 14.60 SECONDS (12.1-14.9) 10/24/22 16:57 INR 1.11 (0.8-1.2) 10/24/22 16:57 APTT 24.1 SECONDS (23.9-36.7) 10/24/22 16:57 Fibrinogen 594 mg/dL (174-498) H 10/24/22 16:57 Fibrin Degrad Products Neg, <10 ug/mL (NEG) 10/24/22 16:57 D-Dimer 1.09 ug/mIFEU (0-0.59) H 10/24/22 16:57 Sodium 138 mmol/L (136-145) 10/26/22 04:17 Potassium 3.8 mmol/L (3.5-5.1) 10/26/22 04:17 Chloride 103 mmol/L (98-107) 10/26/22 04:17 Carbon Dioxide 22 mmol/L (22-29) 10/26/22 04:17 Anion Gap 16.8 (5-19) 10/26/22 04:17 BUN 8 mg/dL (6-20) 10/26/22 04:17 Creatinine 0.7 mg/dL (0.5-0.9) 10/26/22 04:17 GFR Calculation 98.3 mL/min (90-130) 10/26/22 04:17 Glucose 102 mg/dL (65-115) 10/26/22 04:17 Calculated Osmolality 285 mOsm/kg (285-295) 10/26/22 04:17 Lactic Acid 3.6 mmol/L (0.5-2.2) H 10/21/22 19:30 Lactic Acid (Sepsis) 2.1 mmol/L (0.5-2.2) 10/21/22 21:54 Calcium 8.9 mg/dL (8.5-10.5) 10/26/22 04:17 Magnesium 1.9 mg/dL (1.7-2.3) 10/23/22 11:45 Iron 12 ug/dL (37-145) L 10/21/22 19:30 TIBC 363 mcg/dl 10/21/22 19:30 % Saturation 3.3 % (20-50) L 10/21/22 19:30 Unsat Iron Binding 351 ug/dL (112-347) H 10/21/22 19:30 Ferritin 35 ng/mL (15-150) 10/21/22 19:30 Total Bilirubin 0.2 mg/dL (0.15-1.2) 10/26/22 04:17 AST 33 U/L (0-32) H 10/26/22 04:17 ALT 44 U/L (0-33) H 10/26/22 04:17 Alkaline Phosphatase 98 U/L (35-105) 10/26/22 04:17 Lactate Dehydrogenase 257 U/L (135-214) H 10/23/22 11:45 Troponin T Baseline 17 ng/L (0-10) H 10/23/22 19:45 Troponin T 120 Minute 18.68 ng/L (0-10) H 10/23/22 21:05 Delta Troponin T 1.68 ABS# (0-10) 10/23/22 21:05 Troponin T Hi Sens 6Hr 17.33 ng/L (0-10) H 10/24/22 12:20 Troponin T Hi Sens 6Hr Delta 0.33 ng/L (0-12) 10/24/22 12:20 C-Reactive Protein 104.0 mg/L (0.0-4.9) H 10/21/22 19:30 Total Protein 6.9 g/dL (6.6-8.7) 10/26/22 04:17 Albumin 3.6 g/dL (3.5-5.2) 10/26/22 04:17 Globulin 3.3 g/dL (1.3-4.6) 10/26/22 04:17 Lipase 27 U/L (13-60) 10/21/22 19:30 Procalcitonin 0.12 ng/mL (0-0.5) 10/21/22 19:30 TSH 2.99 uIU/mL (0.27-4.20) 10/21/22 19:30 HCG, Qual Negative (Negative) 10/21/22 19:55 Urine Color Yellow (Yellow) 10/21/22 19:55 Urine Appearance Clear (CLEAR) 10/21/22 19:55 Urine pH 6 (5-7) 10/21/22 19:55 Ur Specific [place] 1.020 (1.005-1.030) 10/21/22 19:55 Urine Protein Neg (Negative) 10/21/22 19:55 Urine Glucose (UA) Norm (Normal) 10/21/22 19:55 Urine Ketones Negative (Negative) 10/21/22 19:55 Urine Blood 3+ (Negative) H 10/21/22 19:55 Urine Nitrate Negative (Negative) 10/21/22 19:55 Urine Bilirubin Neg (Negative) 10/21/22 19:55 Urine Urobilinogen Norm mg/dL (Negative) 10/21/22 19:55 Ur Leukocyte Esterase Negative (Negative) 10/21/22 19:55 Urine RBC 5-10 /hpf (0-2) H 10/21/22 19:55 Urine WBC 5-10 /hpf (0-5) H 10/21/22 19:55 Ur Squamous Epith Cells 0-4 /hpf (0-5) H 10/21/22 19:55 Amorphous Sediment Not Reportable 10/21/22 19:55 Urine Bacteria 2+ /hpf (NONE) H 10/21/22 19:55 Nasal Influ A H1 2009 PCR Not detected (NOT DETECT) 10/24/22 13:45 Vancomycin Trough 12.6 ug/mL (10-15) 10/25/22 21:15 Adenovirus (PCR) Not detected (NOT DETECT) 10/24/22 13:45 C. pneumoniae DNA (PCR) Not detected (NOT DETECT) 10/24/22 13:45 Coronavirus 229E (PCR) Not detected (NOT DETECT) 10/24/22 13:45 Human Metapneumovir PCR Not detected (NOT DETECT) 10/24/22 13:45 Influenza A (H1) PCR Not detected (NOT DETECT) 10/24/22 13:45 Influenza A (H3) PCR Not detected (NOT DETECT) 10/24/22 13:45 Influenza Type A (PCR) Not detected (NOT DETECT) 10/24/22 13:45 Influenza Type B (PCR) Not detected (NOT DETECT) 10/24/22 13:45 M. pneumoniae (PCR) Not detected (NOT DETECT) 10/24/22 13:45 Parainfluenza 1 (PCR) Not detected (NOT DETECT) 10/24/22 13:45 Parainfluenza 2 (PCR) Not detected (NOT DETECT) 10/24/22 13:45 Parainfluenza 3 (PCR) Not detected (NOT DETECT) 10/24/22 13:45 Parainfluenza 4 (PCR) Not detected (NOT DETECT) 10/24/22 13:45 RSV Type A (PCR) Not detected (NOT DETECT) 10/24/22 13:45 RSV Type B (PCR) Not detected (NOT DETECT) 10/24/22 13:45 Entero/Rhino (PCR) Not detected (NOT DETECT) 10/24/22 13:45 SARS-CoV-2 (PCR) Not detected (NOT DETECT) 10/24/22 13:45 Blood Type A Positive 10/23/22 01:22 Rho(D) Type Positive 10/23/22 01:22 Antibody Screen Negative 10/23/22 01:22 Crossmatch See Detail 10/23/22 01:22 Vitals Last Vital Signs Temp 98.1 F 10/27/22 17:45 Pulse 98 10/27/22 17:45 Resp 18 10/27/22 17:45 BP 132/85 10/27/22 17:45 Pulse Ox 100 10/27/22 17:45 O2 Del Method Room Air 10/27/22 16:00 Discharge Plan Discharge Patient Disposition: Home Condition: Stable Prescriptions: New levofloxacin 750 mg tablet 750 mg PO DAILY 4 Days Qty: 4 0RF metoprolol tartrate 25 mg Tablet 25 mg PO BID@0900,2100 Qty: 180 0RF ferrous sulfate 325 mg (65 mg iron) tablet,delayed release (DR/EC) 325 mg PO EVERY OTHER DAY Qty: 90 0RF Discharge Orders: Discharge Order (Routine); Ordered 10/27/22 Ordered By: Alok Siddiqi Referrals: [facility] [Provider Group] - 1 month (Heavy periods call [phone] for appointment ) Jeremy Boudreaux MD [Physician] - 10/29/22 8:15 am Discharge Diet: Cardiac Discharge Activity: Increase activity as tolerated Patient Instructions: Metoprolol (By mouth), Levofloxacin (By mouth), Urinary Tract Infection in Women (GEN), Iron Deficiency Anemia (GEN), Kidney Infection (GEN), Ruptured Ovarian Cyst (GEN) Activity Restrictions/Additional Instructions: Follow-up with your primary provider for reassessment of resolution of UTI/pyelonephritis. Primary doctor reassess your blood counts for anemia and continue investigation with regards to source of anemia. Discussed consideration of referral to hematology. Continue iron replacement. You are referred for additional assessment by gynecology due to heavy menses, possibly source of iron deficiency. Discuss with your primary doctor once you recover from acute condition consideration of referral for assessment by endoscopy, although Hemoccult test was negative. You are started on iron supplementation. Discuss with gynecology also regarding hemorrhagic ovarian cyst rupture. Please have your primary doctor recheck your potassium level. Add foods rich in potassium. Your echocardiogram study has not yet been read, you may be contacted with results, otherwise please follow-up on the final result with primary provider. Discharge Attestations Time Spent in Discharge Care*: greater than 30 min Quality Metrics Clinical Quality Measures [ No reported AMI, CVA or VTE this stay] Coding Level of Care Code Acute Code for Chg Fwd Diagnoses Pyelonephritis N12 Anemia D64.9 Pelvic fluid collection R18.8 Sepsis A41.9 Thrombocytosis D75.839 Cough R05.9 Leukocytosis D72.829 Hypokalemia E87.6
== END 2022-10-27 18:25 | disposition home or self-care (01) | DRG 872 ==
LOC: ER 10-22 01:03 → MEDSURG 10-22 01:37
PROVIDERS: Admitting Provider Internal Medicine; Emergency Provider Emergency Medicine; Visit Provider Internal Medicine
DX: A41.51 Sepsis due to Escherichia coli [E. coli] (principal); N12 Tubulo-interstitial nephritis, not specified as acute or chronic; B96.20 Unspecified Escherichia coli [E. coli] as the cause of diseases classified elsewhere; K76.0 Fatty (change of) liver, not elsewhere classified; E87.6 Hypokalemia; D50.9 Iron deficiency anemia, unspecified; J06.9 Acute upper respiratory infection, unspecified; I95.9 Hypotension, unspecified; R05.9 Cough, unspecified; R79.1 Abnormal coagulation profile; R07.81 Pleurodynia; D72.829 Elevated white blood cell count, unspecified; D75.838 Other thrombocytosis; N83.209 Unspecified ovarian cyst, unspecified side; R46.89 Other symptoms and signs involving appearance and behavior
CPT/HCPCS: 36415; 36430; 36569; 71045; 71260; 71275; 74176; 74177; 76856; 80048; 80053; 80202; 80503; 81001; 81025; 82274; 82728; 83010; 83540; 83550; 83605; 83615; 83690; 83735; 84145; 84443; 84484; 85014; 85025; 85045; 85362; 85378; 85384; 85610; 85730; 86140; 86850; 86900; 86920; 87040; 87077; 87086; 87186; 87486; 87581; 87633; 93005; 93306; 93970; 96365; 96375; 99285; C1751; C9113; J0692; J1170; J1756; J1956; J2270; J2405; J3370; J7030; J7120; P9016; Q9967

== ENCOUNTER 2022-12-17 00:59 | Emergency (ER) | payer MEDICAID, SELFPAY ==
--- NOTE | 2022-12-17 01:02 | ED_ITS ---
HPI - Dental/Oral General: Chief complaint: Dental/Oral Stated complaint: Toothache Time Seen by Provider: 12/17/22 01:00 History of Present Illness: 32-year-old female comes in today with some dental pain and an abscess. Patient has very poor dentition. Patient's first premolar in the right upper jaw is decayed off the gum and patient states is sore and swollen around it. Patient appears mildly unwell but not toxic. Patient appears in mild to moderate pain. Review of Systems General: Reports: 10 or more systems reviewed and unremarkable except in HPI and below ENMT: Reports: dental pain Card: Denies: chest pain Resp: Denies: dyspnea GI: Denies: vomiting : Denies: difficulty voiding Skin/Breast: Denies: rash PFSH ED PFSH: Medical History Dental caries associated with enamel hypomineralization Family History (Updated 11/02/22 @ 14:53 by Manuela Roberson LPN) Other CAD (coronary artery disease) Dementia Diabetes Hyperlipidemia Hypertension Stroke Denies family history of Clotting disorder Psychiatric illness Chronic kidney disease (CKD) Anesthesia complication Bleeding disorder Lung disease Cancer Social History (Updated 11/02/22 @ 14:54 by Manuela Roberson LPN) Smoking and tobacco status: never smoked Alcohol intake: never Substance/Drug Use: never Lives independently: Yes Marital status: Single Number of children: 0 Current occupational status: unemployed Special jamie needs: No Agree to transfusion: Yes Physical Exam Const: COMMON NORMALS: alert HENMT: COMMON NORMALS: normocephalic HEAD & SCALP: normocephalic TEETH & GINGIVA: Yes poor dentition TEETH & GINGIVA IMAGES: 1. Abscess, tooth decayed to gum Neck/C-Spine: COMMON NORMALS: full ROM and no meningeal signs Resp: COMMON NORMALS: normal respiratory effort Cardio: COMMON NORMALS: regular rate and regular rhythm RATE: regular rate RHYTHM: regular rhythm Extremity: COMMON NORMALS: normal to inspection Neuro: SENSORIUM/ORIENTATION: Yes alert MENINGEAL SIGNS: Yes no meningeal signs Skin: COMMON NORMALS: turgor normal GENERAL SKIN EXAM: turgor normal Course Vital Signs: Vital signs: Vital Signs Temperature 97.6 F 12/17/22 01:07 Pulse Rate 136 H 12/17/22 01:07 Respiratory Rate 22 H 12/17/22 01:07 Blood Pressure 124/88 12/17/22 01:07 Pulse Oximetry 99 12/17/22 01:07 Oxygen Delivery Me thod Room Air 12/17/22 01:07 MDM - Dental/Oral Medical Decision Making 32-year-old female comes in today with complaints of dental pain and tooth abscess. On exam patient has some swelling and redness to the gingiva at the site of the first premolar and right upper jaw. Posterior pharynx is normal. Differential diagnosis includes tooth ache, dental caries, dental abscess. Believe patient has an abscess we will go ahead and treat with Augmentin. Patient was given some hydrocodone to help with pain. Patient was recommended to follow-up with dentist for definitive care return to ED for new concerns. Patient reported understanding. Discharge Plan Discharge Patient Disposition: Home Clinical Impression: Toothache, Gingival abscess Condition: Stable Prescriptions: New amoxicillin-pot clavulanate 875-125 mg tablet 1 tab PO BID Qty: 14 0RF hydrocodone-acetaminophen 5-325 mg tablet 1 tab PO Q8H PRN (Reason: pain (scale score 7-10)) Qty: 7 0RF No Action metoprolol tartrate 25 mg Tablet 25 mg PO BID@0900,2100 Qty: 180 0RF ferrous sulfate 325 mg (65 mg iron) tablet,delayed release (DR/EC) 325 mg PO EVERY OTHER DAY Qty: 90 0RF Discharge Orders: Discharge ED (Routine); Ordered 12/17/22 Ordered By: Stanley Kirby Referrals: Jeremy Boudreaux MD [Physician] - Discharge Diet: Usual diet Discharge Activity: Increase activity as tolerated Patient Instructions: Toothache (ED) Activity Restrictions/Additional Instructions: Good oral care. Drink plenty of water and fluids. Healthy diet and activity. Follow-up with dentist for definitive care. Take antibiotics as directed. Return to ED for new concerns. 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
[2022-12-17 01:07] VITALS: BP 124/88; PULSE 136; RESP 22; TEMP 36.4; O2SAT 99; BMI 42.2
[2022-12-17] MEDS: HYDROcodone-acetaminophen 5-325 mg Tablet 1 TAB PO (01:15)
[2022-12-17] MEDS: amoxicillin-clav 875-125 mg Tablet 1 TAB PO (01:15)
[2022-12-17 01:18] VITALS: BP 121/86; PULSE 107; RESP 18; O2SAT 96
[2022-12-17 01:24] VITALS: BP 121/86; PULSE 108; RESP 18; O2SAT 96
--- NOTE | 2022-12-24 13:43 | DCPLANNER ---
division operations manager was triggered to call patient due to no primary care physician - patient sees Dr. Boudreaux.
== END 2022-12-17 01:26 | disposition home or self-care (01) ==
PROVIDERS: Emergency Provider Nurse Practitioner Family
DX: K05.20 Aggressive periodontitis, unspecified (principal)
CPT/HCPCS: 99283

== ENCOUNTER 2024-05-02 17:47 | Emergency (ER) | payer MEDICAID, SELFPAY ==
[2024-05-02 18:01] VITALS: BP 152/96; PULSE 95; RESP 16; TEMP 36.6; O2SAT 100
[2024-05-02] MEDS: HYDROcodone-acetaminophen 7.5-325 mg Tablet 1 TAB PO (18:24)
[2024-05-02] MEDS: lidocaine 2% viscous 15 mL UDC 10 ML TOPICAL (18:25)
[2024-05-02 18:37] VITALS: BP 139/74; PULSE 98; RESP 16; O2SAT 97
--- NOTE | 2024-05-02 19:12 | ED_ITS ---
HPI - Dental/Oral General: Chief complaint: Dental/Oral Stated complaint: tooth pain Time Seen by Provider: 05/02/24 18:04 Source: patient Mode of arrival: ambulatory Limitations: no limitations History of Present Illness: Patient is a 34-year-old female presenting to the emergency department complaining of left upper dental pain. She does see a dentist, history of poor dental care and multiple restorations and caries, states she has a fractured tooth that has been causing her pain. States she is planning on calling her dentist in the next couple of days. States she is just simply here for pain relief. She is denying any facial pain, facial swelling, trouble swallowing, fevers, or other symptoms. MD Complaint: tooth pain Onset (ago): day(s) Duration: constant Severity: moderate Relieving factors: nothing Context: history of dental caries and poor dental care Associated symptoms: Denies ear or mastoid pain, fever(s) or odynophagia Related Data Previous Rx's Medication Instructions Recorded ferrous sulfate 325 mg (65 mg 325 mg PO EVERY OTHER DAY #90 tabs 10/27/22 iron) tablet,delayed release metoprolol tartrate 25 mg tablet 25 mg PO BID@0900,2100 #180 tabs 10/27/22 amoxicillin 875 mg-potassium 1 tab PO BID #14 tabs 12/17/22 clavulanate 125 mg tablet hydrocodone 5 mg-acetaminophen 325 1 tab PO Q8H PRN pain (scale score 12/17/22 mg tablet 7-10) #7 tabs lidocaine HCl 2 % mucosal solution 10 ml mucous membrane DAILY PRN 05/02/24 (Lidocaine Viscous) pain #100 mL Allergies Allergy/AdvReac Type Severity Reaction Status Date / Time levofloxacin Allergy Severe throat Verified 01/03/23 14:22 swelling, tingling Review of Systems General: Reports: 10 or more systems reviewed and unremarkable except in HPI and below Const: Denies: fever(s), chills or fatigue Eyes: Denies: change in vision ENMT: Reports: dental pain; Denies: throat pain, odynophagia, swelling of lips/tongue, ear or mastoid pain, nasal discharge or sinus pain Card: Denies: chest pain, palpitations, swelling of feet/ankles or lightheadedness Resp: Denies: dyspnea, productive cough or wheezing GI: Denies: abdominal pain, nausea, vomiting, diarrhea or constipation : Denies: flank pain, difficulty voiding, dysuria or urinary frequency Musc: Denies: neck pain, back pain or joint pain Skin/Breast: Denies: rash Neuro: Denies: headache(s), numbness in extremities or weakness in extremities PFSH ED PFSH: Medical History Dental caries associated with enamel hypomineralization Family History Other CAD (coronary artery disease) Dementia Diabetes Hyperlipidemia Hypertension Stroke Denies family history of Clotting disorder Psychiatric illness Chronic kidney disease (CKD) Anesthesia complication Bleeding disorder Lung disease Cancer Social History Smoking and tobacco/nicotine status: never used tobacco/nicotine Alcohol intake: never Substance/Drug Use: never Lives independently: Yes Marital status: Single Number of children: 0 Current occupational status: unemployed Special jamie needs: No Agree to transfusion: Yes Physical Exam Const: COMMON NORMALS: no acute distress and no limitations GENERAL APPEARANCE: cooperative, comfortable and well developed ORIENTATION/CONSCIOUSNESS: Yes awake HENMT: COMMON NORMALS: normocephalic, atraumatic and hearing grossly normal bilaterally HEAD & SCALP: normocephalic and atraumatic TEETH & GINGIVA: Yes abnormal tooth and associated gingiva upper left tender and enamel fractured, Yes caries, Yes multiple restorations, Yes poor dentition and Yes other OTHER: No facial swelling or tenderness to palpation Eye: COMMON NORMALS: Equal, round and reactive pupils present, EOMs intact bilaterally and conjunctivae normal CONJUNCTIVA: Yes conjunctivae normal PUPIL: Yes Equal, round and reactive pupils present Neck/C-Spine: COMMON NORMALS: full ROM, supple and no JVD Resp: COMMON NORMALS: normal respiratory effort, No retractions, No use of accessory muscles and clear to auscultation bilaterally AUSCULTATION: clear to auscultation bilaterally Cardio: COMMON NORMALS: no JVD, regular rate, regular rhythm, No clicks present (Cardio), No murmurs present (Cardio) and No rub (Cardio) RATE: regular rate RHYTHM: regular rhythm Extremity: COMMON NORMALS: normal to inspection, full ROM and capillary refill normal Psych: COMMON NORMALS: mental status grossly normal and Normal thought process present THOUGHT PROCESS: Normal thought process present Skin: COMMON NORMALS: no rashes or lesions noted GENERAL SKIN EXAM: no rashes or lesions noted Course Vital Signs: Vital signs: Vital Signs Temperature 97.8 F 05/02/24 18:01 Pulse Rate 98 05/02/24 18:37 Respiratory Rate 16 05/02/24 18:37 Blood Pressure 139/74 05/02/24 18:37 Pulse Oximetry 97 05/02/24 18:37 Oxygen Delivery Me thod Room Air 05/02/24 18:01 MDM - Dental/Oral Medical Decision Making Of the patient's multiple restorations and caries, there is 1 fractured tooth that is causing the patient's pain to the left upper dentition. No clinical signs of a dental abscess, warranting no antibiotics at this time. She does have a dentist and plans on calling them in the morning, states she is simply here for pain relief. She is given 1 tab of hydrocodone here and viscous lidocaine to apply to the fractured tooth, there is no pulp exposure. She is to call dentist in the morning as planned, return precautions given. No radiology studies performed this visit Discharge Plan Discharge Patient Disposition: Home Clinical Impression: Fracture of tooth Condition: Stable Prescriptions: New lidocaine HCl [Lidocaine Viscous] 2 % solution 10 ml mucous membrane DAILY PRN (Reason: pain) Qty: 100 0RF No Action amoxicillin-pot clavulanate 875-125 mg tablet 1 tab PO BID Qty: 14 0RF hydrocodone-acetaminophen 5-325 mg tablet 1 tab PO Q8H PRN (Reason: pain (scale score 7-10)) Qty: 7 0RF metoprolol tartrate 25 mg Tablet 25 mg PO BID@0900,2100 Qty: 180 0RF ferrous sulfate 325 mg (65 mg iron) tablet,delayed release (DR/EC) 325 mg PO EVERY OTHER DAY Qty: 90 0RF Discharge Orders: Discharge ED (Routine); Ordered 05/02/24 Ordered By: Ramiro Awad Referrals: Ameya Power MD [Primary Care Provider] - Patient Instructions: Chipped or Broken Tooth Activity Restrictions/Additional Instructions: Viscous lidocaine. Call your dentist in the morning to schedule an appointment as discussed. Tylenol/ibuprofen. Coding Level of Care Code ED Senior Mobile Solutions Architect for Shaeg Ely
== END 2024-05-02 18:39 | disposition home or self-care (01) ==
PROVIDERS: Emergency Provider Physician Assistant; PCP Family Medicine
DX: S02.5XXA Fracture of tooth (traumatic), initial encounter for closed fracture (principal); X58.XXXA Exposure to other specified factors, initial encounter
CPT/HCPCS: 99283

== ENCOUNTER 2024-10-19 23:37 | Emergency (ER) | payer MEDICAID, SELFPAY ==
[2024-10-19 23:44] VITALS: BP 172/84; PULSE 116; RESP 16; TEMP 37.5; O2SAT 100
[2024-10-20] MEDS: HYDROcodone-acetaminophen 5-325 mg Tablet 1 TAB PO (00:06)
[2024-10-20] MEDS: dexamethasone 10 mg/mL INJ IM (00:07)
[2024-10-20] MEDS: cefTRIAXone 1,000 MG in water for injection-sterile 2.1 ML 1 MG IM (00:07)
--- NOTE | 2024-10-20 00:09 | ED_ITS ---
HPI - Dental/Oral General: Chief complaint: Dental/Oral Stated complaint: bad tooth ache Time Seen by Provider: 10/19/24 23:42 Source: patient Mode of arrival: ambulatory Limitations: no limitations History of Present Illness: Patient is a 34-year-old female presents the emergency department planing of left lower dental pain onset tonight. History of dental extraction and poor dental care multiple caries, states that she sees a dentist has not followed up with them with this. No fever, trouble swallowing, painful swallowing, or other symptoms. States pain does not radiate localized just to the left lower dentition. She arrives stating I need strong pain meds and antibiotics. MD Complaint: tooth pain Onset (ago): hour(s) Duration: constant Severity: severe Associated symptoms: Denies ear or mastoid pain or fever(s) Related Data Previous Rx's ?Medication ?Instructions ?Recorded ferrous sulfate 325 mg (65 mg 325 mg PO EVERY OTHER DA Y #90 tabs 10/27/22 iron) tablet,delayed release metoprolol tartrate 25 mg tablet 25 mg PO BID@0900,210 0 #180 tabs 10/27/22 amoxicillin 875 mg-potassium 1 tab PO BID #14 tabs 03/03 clavulanate 125 mg tablet hydrocodone 5 mg-acetaminophen 325 1 tab PO Q8H PRN pa in (scale score 12/17/22 mg tablet 7-10) #7 tabs lidocaine HCl 2 % mucosal solution 10 ml mucous membra ne DAILY PRN 05/02/24 (Lidocaine Viscous) pain #100 mL Allergies Allergy/AdvReac Type Severity Reaction Status Date / Time levofloxacin Allergy Severe throat Verified 10/19/24 23:47 swelling, tingling Review of Systems General: Reports: 10 or more systems reviewed and unremarkable except in HPI and below Const: Denies: fever(s), chills or fatigue Eyes: Denies: change in vision ENMT: Reports: dental pain; Denies: throat pain, ear or mastoid pain or nasal discharge Card: Denies: chest pain, palpitations, swelling of feet/ankles or lightheadedness Resp: Denies: dyspnea, productive cough or wheezing GI: Denies: abdominal pain, nausea, vomiting, diarrhea or constipation : Denies: flank pain, difficulty voiding, dysuria or urinary frequency Musc: Denies: neck pain, back pain or joint pain Skin/Breast: Denies: rash Neuro: Denies: headache(s), numbness in extremities or weakness in extremities PFSH ED PFSH: Medical History Dental caries associated with enamel hypomineralization Family History Other CAD (coronary artery disease) Dementia Diabetes Hyperlipidemia Hypertension Stroke Denies family history of Clotting disorder Psychiatric illness Chronic kidney disease (CKD) Anesthesia complication Bleeding disorder Lung disease Cancer Social History Smoking and tobacco/nicotine status: never used tobacco/nicotine Alcohol intake: never Substance/Drug Use: never Lives independently: Yes Marital status: Single Number of children: 0 Current occupational status: unemployed Special jamie needs: No Agree to transfusion: Yes Physical Exam Const: COMMON NORMALS: no acute distress and no limitations GENERAL APPEARANCE: cooperative, comfortable and well developed ORIENTATION/CONSCIOUSNESS: Yes awake HENMT: COMMON NORMALS: normocephalic, atraumatic and hearing grossly normal bilaterally HEAD & SCALP: normocephalic and atraumatic OTHER: Poor dentition, multiple caries and restorations. No associated gingival edema or fluctuance. Eye: COMMON NORMALS: Equal, round and reactive pupils present, EOMs intact bilaterally and conjunctivae normal CONJUNCTIVA: Yes conjunctivae normal PUPIL: Yes Equal, round and reactive pupils present Neck/C-Spine: COMMON NORMALS: full ROM, supple and no JVD Resp: COMMON NORMALS: normal respiratory effort, No retractions, No use of accessory muscles and clear to auscultation bilaterally AUSCULTATION: clear t o auscultation bilaterally Cardio: COMMON NORMALS: no JVD, regular rate, regular rhythm, No clicks present (Cardio), No murmurs present (Cardio) and No rub (Cardio) RATE: regular rate RHYTHM: regular rhythm Extremity: COMMON NORMALS: normal to inspection, full ROM and capillary refill normal Skin: COMMON NORMALS: no rashes or lesions noted GENERAL SKIN EXAM: no rashes or lesions noted Course Vital Signs: Vital signs: Vital Signs Temperature 99.5 F 10/19/24 23:44 Pulse Rate 116 H 10/19/24 23:44 Respiratory Rate 16 10/19/24 23:44 Blood Pressure 172/84 10/19/24 23:44 Pulse Oximetry 100 10/19/24 23:44 Oxygen Delivery Me thod Room Air 10/19/24 23:44 MDM - Dental/Oral Medical Decision Making I do not see any clinical signs of a dental abscess on exam at this time, potentially dry socket versus other dental etiology and encouraged her to follow-up with dentist tomorrow. Did give her shot of Decadron and 1 dose of [place] here in the ED, at her request gave her a shot of ceftriaxone. Return precautions given. No radiology studies performed this visit Discharge Plan Discharge Patient Disposition: Home Clinical Impression: Toothache Condition: Stable Prescriptions: No Action amoxicillin-pot clavulanate 875-125 mg tablet 1 tab PO BID Qty: 14 0RF hydrocodone-acetaminophen 5-325 mg tablet 1 tab PO Q8H PRN (Reason: pain (scale score 7-10)) Qty: 7 0RF metoprolol tartrate 25 mg Tablet 25 mg PO BID@0900,2100 Qty: 180 0RF ferrous sulfate 325 mg (65 mg iron) tablet,delayed release (DR/EC) 325 mg PO EVERY OTHER DAY Qty: 90 0RF lidocaine HCl [Lidocaine Viscous] 2 % solution 10 ml mucous membrane DAILY PRN (Reason: pain) Qty: 100 0RF Discharge Orders: Discharge ED (Routine); Ordered 10/20/24 Ordered By: Ramiro Awad Referrals: Ameya Power MD [Primary Care Provider] - Patient Instructions: Toothache (ED) Activity Restrictions/Additional Instructions: Call dentist tomorrow to schedule follow-up appointment as we discussed. Return with any new or worsening. Ibuprofen and Tylenol for pain. Print Language: [place] Coding Level of Care Code ED Sales And Events Coordinator for John Graves
[2024-10-20 00:35] VITALS: BP 142/99; PULSE 100; O2SAT 99
== END 2024-10-20 00:36 | disposition home or self-care (01) ==
PROVIDERS: Emergency Provider Physician Assistant; PCP Family Medicine
DX: K08.89 Other specified disorders of teeth and supporting structures (principal)
CPT/HCPCS: 96372; 99284; J0696; J1100; J9999

== ENCOUNTER → 2025-03-21 18:52 | Outpatient (BNVA) | payer MEDICAID, SELFPAY | PROVIDERS: PCP Family Medicine; Visit Provider Emergency Medicine | DX: R31.9 Hematuria, unspecified (principal) | CPT/HCPCS: 81000; 87086 ==